=== PATIENT | female | born 1960 ===

== ENCOUNTER 2017-03-24 23:49 | Inpatient (IN) | payer MEDICAID, OTHER ==
--- NOTE | 2017-03-25 00:23 | ED PDOC ---
HPI: General Adult Time Seen by Provider: 03/25/17 00:02 Chief Complaint (Nursing): Weakness/Neurological Deficit Chief Complaint (Provider): Weakness History Per: Patient History/Exam Limitations: no limitations Onset/Duration Of Symptoms: Days (3) Current Symptoms Are (Timing): Still Present Additional History Per: Patient Additional Complaint(s): The patient is a 56yo female with past medical history of DM, presents to the ED for evaluation of weakness, fever, bodyaches and increased blood sugar levels present for the past three days. Patient reports she traveled out of state this past weekend and had increased alcohol consumption and ate different foods. The patient states she takes Metformin to control her DM but did not take proper doses this past weekend; additionally reports she does not follow up with a PCP and states she gets Metformin refills when she "visits [place]". She denies any cough, chest pain, nausea, vomiting, diarrhea, urinary symptoms, back pain, abdominal pain. Patient offers no additional medical complaints. Past Medical History Reviewed: Historical Data, Nursing Documentation, Vital Signs Vital Signs: Last Vital Signs Temp 98.2 F 03/25/17 01:46 Pulse 93 H 03/25/17 01:46 Resp 18 03/25/17 01:46 BP 150/71 03/25/17 01:46 Pulse Ox 97 03/25/17 02:16 - Medical History PMH: Diabetes - Surgical History Surgical History: Appendectomy - Family History Family History: States: Unknown Family Hx - Social History Current smoker - smoking cessation education provided: Yes - Home Medications Home Medications: Ambulatory Orders Medication Instructions Recorded Pioglitazone HCl/Metformin HCl 1 tab PO BID 03/25/17 [Pioglitazone-Metformin 01-552] - Allergies Allergies/Adverse Reactions: Allergies Allergy/AdvReac Type Severity Reaction Status Date / Time No Known Allergies Allergy Verified 03/24/17 23:56 Review of Systems ROS Statement: Except As Marked, All Systems Reviewed And Found Negative Constitutional: Positive for: Fever, Weakness Cardiovascular: Negative for: Chest Pain Gastrointestinal: Negative for: Nausea, Vomiting, Abdominal Pain, Diarrhea Musculoskeletal: Negative for: Back Pain Physical Exam - Reviewed Nursing Documentation Reviewed: Yes Vital Signs Reviewed: Yes - Physical Exam Appears: Positive for: Non-toxic, No Acute Distress Head Exam: Positive for: ATRAUMATIC, NORMAL INSPECTION, NORMOCEPHALIC Skin: Positive for: Normal Color, Dry Eye Exam: Positive for: Normal appearance ENT: Positive for: Other (dry mucus membranes) Neck: Positive for: Normal Cardiovascular/Chest: Positive for: Regular Rate, Rhythm, Tachycardia Respiratory: Positive for: Normal Breath Sounds. Negative for: Respiratory Distress Gastrointestinal/Abdominal: Positive for: Normal Exam, Soft. Negative for: Tenderness Back: Positive for: Normal Inspection Extremity: Positive for: Normal ROM. Negative for: Deformity, Swelling Neurologic/Psych: Positive for: Alert, Oriented - Laboratory Results Result Diagrams: 03/25/17 00:39 03/25/17 00:39 - ECG O2 Sat by Pulse Oximetry: 97 (RA) Pulse Ox Interpretation: Normal Medical Decision Making Medical Decision Making: Time: 1221 Impression: Hyperglycemia, fever Differentials: 1. Uncontroled DM r/o DKA 2. Infectious sources considered but not limited to UTI, pneumonia; sepsis Plan: * Labs * Tylenol 975 mg PO * IV Fluids * Reassess Time: 0216 Patient to be admitted for fever, SERS criteria, hyperglycemia. Case discussed with Dr. Calderon who is aware. Scribe Attestation: Documented by Yareli Lambert, acting as a scribe for Wade Plata MD. Provider Scribe Attestation: All medical record entries made by the Scribe were at my direction and personally dictated by me. I have reviewed the chart and agree that the record accurately reflects my personal performance of the history, physical exam, medical decision making, and the department course for this patient. I have also personally directed, reviewed, and agree with the discharge instructions and disposition. Disposition - Clinical Impression Clinical Impression: Fever, Hyperglycemia due to type 2 diabetes mellitus, Alcohol abuse - Patient ED Disposition Is Patient to be Admitted: Yes Discussed With DrTwyla: Donya Calderon Doctor Will See Patient In The: ED Counseled Patient/Family Regarding: Studies Performed, Diagnosis - Disposition Disposition Time: 02:30 Condition: FAIR - Pt Status Changed To: Hospital Disposition Of: Observation - POA Present On Arrival: Poor Glycemic Control
[2017-03-25] MEDS ORDERED: Sodium Chloride 0.9% 1,000 ML IV STA (00:27)
[2017-03-25 00:41] LABS: ABG ALLEN TEST YES; ARTERIAL BLOOD GAS HCO3 25.8 mmol/L (21-28); ARTERIAL BLOOD GAS PH 7.53 (7.35-7.45); ARTERIAL BLOOD GAS PO2 175 mm/Hg (80-100); VENOUS BLOOD GAS BASE EXCESS 1.1 mmol/L (0.0-2.0); VENOUS BLOOD GAS PCO2 27 mmHg (40-60); VENOUS BLOOD PH 7.53 (7.32-7.43)
[2017-03-25 00:42] LABS: BASO % 0.2 % (0.0-2.0); EOS # 0.1 K/uL (0.0-0.7); EOS % 0.4 % (0.0-4.0); HEMATOCRIT 35.2 % (34.0-47.0); LYMPH # 0.9 K/uL (1.0-4.3); LYMPH % 5.5 % (20.0-40.0); MEAN CELL VOLUME 89.8 fl (81.0-99.0); MEAN CORPUSCULAR HEMOGLOBIN 29.9 pg (27.0-31.0); MEAN CORPUSCULAR HGB CONC 33.3 g/dL (33.0-37.0); MEAN PLATELET VOLUME 8.3 fl (7.2-11.7); MONO # 0.4 K/uL (0.0-0.8); MONO % 2.8 % (0.0-10.0); NEUT # 14.2 K/uL (1.8-7.0); NEUT % 91.1 % (50.0-75.0); PLATELET COUNT 230 K/uL (130-400); RED CELL DISTRIBUTION WIDTH 12.5 % (11.5-14.5); WHITE BLOOD COUNT 15.6 K/uL (4.8-10.8)
[2017-03-25 00:51] LABS: ALB/GLOB RATIO 1.2 (1.0-2.1); ALKALINE PHOSPHATASE 160 U/L (38-126); ALT/SGPT 38 U/L (9-52); AST/SGOT 33 U/L (14-36); BILIRUBIN,TOTAL 0.6 mg/dl (0.2-1.3); BLOOD UREA NITROGEN 26 mg/dl (7-17); CALCIUM 9.4 mg/dL (8.4-10.2); CARBON DIOXIDE 22 mmol/L (22-30); CHLORIDE 96 mmol/L (98-107); GFR AFRICAN-AMERICAN > 60; MAGNESIUM 1.7 MG/DL (1.6-2.3); PHOSPHOROUS 2.7 mg/dl (2.5-4.5); POTASSIUM 4.7 MMOL/L (3.6-5.0); SODIUM 130 mmol/l (132-148); TOTAL PROTEIN 7.5 G/DL (6.3-8.2)
[2017-03-25 00:59] LABS: GLUCOSE,RANDOM 516 mg/dL (65-105)
[2017-03-25] MEDS ORDERED: Insulin Regular 100 units/ml IV STA ×2 (01:18→02:52)
[2017-03-25 01:20] LABS: RBC URINE 4 /hpf (0-3); URINE BACTERIA RARE (<OCC); URINE BILIRUBIN NEGATIVE (NEGATIVE); URINE BLOOD NEGATIVE (NEGATIVE); URINE COLOR STRAW (YELLOW); URINE GLUCOSE (UA) >=500 mg/dL (Normal); URINE KETONE TRACE mg/dL (NEGATIVE); URINE LEUKOCYTE ESTERASE NEG Leu/uL (Negative); URINE PROTEIN 30 mg/dL (NEGATIVE); URINE UROBILINOGEN 0.2-1.0 mg/dL (0.2-1.0); WBC URINE 7 /hpf (0-5)
[2017-03-25] MEDS ORDERED: Insulin Regular 100 units/ml ONE ×2 (01:30→02:54)
[2017-03-25] MEDS ORDERED: cefTRIAXone (Rocephin) 1 gm Inj ONE (02:12)
[2017-03-25 02:46] LABS: EOSINOPHIL 2 % (0-7); NEUTROPHIL 91 % (42-75); TOTAL CELLS COUNTED 100
[2017-03-25 02:47] LABS: LARGE PLATELETS PRESENT
[2017-03-25 02:48] LABS: STOMATOCYTES SLIGHT
--- NOTE | 2017-03-25 02:48 | CP.PCM.HP ---
History of Present Illness - History of Present Illness History of Present Illness: CC: malaise, weakness, bodyaches HPI 56 year old female PMH DM, presented to the ER for a one day history of subjective fever, malaise, and bodyaches. These symptoms were moderate severity , were constant, and were not ameliorated by anything and were not associated with any other symptoms. Over the weekend, patient heavily drank, and states she drinks beer. She also admitted to "eating everything under the sun" and not taking any of her medications. In the ER pt was febrile on arrival 102.8, tachycardia 111, BP 150/71. Glucose 500+. Na 130. Cl 96. Electrolyte derangement likely 2/2 chronic beer consumption. Currently vitals have improved HR 80, afebrile. Patient denies any cough, congestion, abd pain, diarrhea, nausea, vomiting, or urinary symptoms. ROS: per HPI, 12 systems reviewed and negative PMD: in [place] PMH: DM PSH: appendectomy FH: denies SH: tobacco "for many years" will not specify - 1 2 to 10 cigarettes daily. ETOH beer will not specify how much or how often. Meds: as below Allergies: NKDA Vitals: reviewed and currently stable Temp Pulse Resp BP Pulse Ox 98.2 F 93 H 18 150/71 97 03/25/17 01:46 03/25/17 01:46 03/25/17 01:46 03/25/17 01:46 03/25/17 02:43 Exam: GEN: WDWN, alert, cooperative HEENT: NCAT, PERRL, EOMI NECK: supple, no JVD, no lymphadenopathy CARDIAC: +S1S2 RRR LUNG: CTAB No WRR ABD: SOFT NT ND BSX4 NO MASSES NO HSM EXT: +pedal pulses, equal strength NEURO: AAOx3 SKIN warm, dry PSYCH normal mood, normal affect Labs: 03/25/17 00:39 03/25/17 00:39 Assessment and Plan: 56 year old female PMH DM, presented to the ER for a one day history of subjective fever, malaise, and bodyaches. These symptoms were moderate severity , were constant, and were not ameliorated by anything and were not associated with any other symptoms. Over the weekend, patient heavily drank, and states she drinks beer. She also admitted to "eating everything under the sun" and not taking any of her medications. In the ER pt was febrile on arrival 102.8, tachycardia 111, BP 150/71. Glucose 500+. Na 130. Cl 96. Electrolyte derangement likely 2/2 chronic beer consumption. Currently vitals have improved HR 80, afebrile. Patient denies any cough, congestion, abd pain, diarrhea, nausea, vomiting, or urinary symptoms. Hyperglycemia restart DM meds, Metformin and Actos Accuchecks ISS low hydrated pt with 1L NS in ER Hypertension start lisinopril 10 mg po daily Leukocytosis poss stress reaction to hyperglycemia no obvious source of infection, no clinical signs of infection One dose Rocephin given ER UA neg monitor Hyponatremia 2/2 beer drinkers [place] 1L NS given in ER likely secondary to chronic beer drinking Tachycardia resolved poss 2/2 dehydration Azotemia BUN 26 1L NS in ER give additional liter of fluids @250cc/hr VTE ppx SCDs Present on Admission - Present on Admission Any Indicators Present on Admission: No Past Patient History - Past Social History Smoking Status: Light Smoker < 10 Cigarettes Daily - CARDIAC Hx Hypotension: Yes - ENDOCRINE/METABOLIC Hx Diabetes Mellitus Type 2: Yes - PSYCHIATRIC Hx Substance Use: No - SURGICAL HISTORY Hx Appendectomy: Yes - ANESTHESIA Hx Anesthesia: Yes Hx Anesthesia Reactions: No Meds Allergies/Adverse Reactions: Allergies Allergy/AdvReac Type Severity Reaction Status Date / Time No Known Allergies Allergy Verified 03/24/17 23:56 Results - Vital Signs Recent Vital Signs: Last Vital Signs Temp 98.2 F 03/25/17 01:46 Pulse 93 H 03/25/17 01:46 Resp 18 03/25/17 01:46 BP 150/71 03/25/17 01:46 Pulse Ox 97 03/25/17 02:43 - Labs Result Diagrams: 03/25/17 00:39 03/25/17 00:39 Labs: Laboratory Results - last 24 hr 03/25/17 03/25/17 03/25/17 00:15 00:37 00:39 WBC 15.6 H RBC 3.92 Hgb 11.7 L Hct 35.2 MCV 89.8 MCH 29.9 MCHC 33.3 RDW 12.5 Plt Count 230 MPV 8.3 Neut % (Auto) 91.1 H Lymph % (Auto) 5.5 L Sharp % (Auto) 2.8 Eos % (Auto) 0.4 Baso % (Auto) 0.2 Neut # 14.2 H Lymph # 0.9 L Sharp # 0.4 Eos # 0.1 Baso # 0.0 PT INR APTT pCO2 27 L pO2 175 H HCO3 25.8 ABG pH 7.53 H ABG Total CO2 23.4 ABG O2 Saturation 101.1 H ABG Base Excess 1.1 Neil Test Yes ABG Potassium 5.1 VBG pH 7.53 H VBG pCO2 27 L VBG HCO3 25.8 VBG Total CO2 23.4 VBG O2 Sat (Calc) 101.1 H VBG Base Excess 1.1 VBG Potassium 5.1 A-a O2 Difference -59.0 Sodium 124.0 L Chloride 93.0 L Glucose 533 H* Lactate 1.9 FiO2 21.0 Crit Value Called To federico Plata md Crit Value Called By [id number] Crit Value Read Back Y Blood Gas Notified Time 40 Potassium Carbon Dioxide Anion Gap BUN Creatinine Est GFR ( Amer) Est GFR (Non-Af Amer) Random Glucose Calcium Phosphorus Magnesium Total Bilirubin AST ALT Alkaline Phosphatase Total Protein Albumin Globulin Albumin/Globulin Ratio Arterial Blood Potassium 5.1 Venous Blood Potassium 5.1 Urine Color Straw Urine Clarity Clear Urine pH 6.0 Ur Specific [place] 1.023 Urine Protein 30 Urine Glucose (UA) >=500 Urine Ketones Trace Urine Blood Negative Urine Nitrate Negative Urine Bilirubin Negative Urine Urobilinogen 0.2-1.0 Ur Leukocyte Esterase Neg Urine RBC (Auto) 4 H Urine Microscopic WBC 7 H Urine Bacteria Rare 03/25/17 03/25/17 00:39 00:39 WBC RBC Hgb Hct MCV MCH MCHC RDW Plt Count MPV Neut % (Auto) Lymph % (Auto) Sharp % (Auto) Eos % (Auto) Baso % (Auto) Neut # Lymph # Sharp # Eos # Baso # PT 10.4 INR 0.9 APTT 31.0 pCO2 pO2 HCO3 ABG pH ABG Total CO2 ABG O2 Saturation ABG Base Excess Neil Test ABG Potassium VBG pH VBG pCO2 VBG HCO3 VBG Total CO2 VBG O2 Sat (Calc) VBG Base Excess VBG Potassium A-a O2 Difference Sodium 130 L Chloride 96 L Glucose Lactate FiO2 Crit Value Called To Crit Value Called By Crit Value Read Back Blood Gas Notified Time Potassium 4.7 Carbon Dioxide 22 Anion Gap 17 BUN 26 H Creatinine 0.9 Est GFR ( Amer) > 60 Est GFR (Non-Af Amer) > 60 Random Glucose 516 H* Calcium 9.4 Phosphorus 2.7 Magnesium 1.7 Total Bilirubin 0.6 AST 33 ALT 38 Alkaline Phosphatase 160 H Total Protein 7.5 Albumin 4.1 Globulin 3.4 Albumin/Globulin Ratio 1.2 Arterial Blood Potassium Venous Blood Potassium Urine Color Urine Clarity Urine pH Ur Specific [place] Urine Protein Urine Glucose (UA) Urine Ketones Urine Blood Urine Nitrate Urine Bilirubin Urine Urobilinogen Ur Leukocyte Esterase Urine RBC (Auto) Urine Microscopic WBC Urine Bacteria
[2017-03-25] MEDS ORDERED: Sodium Chloride 0.9% 1,000 ML IV SCH (03:00)
[2017-03-25] MEDS ORDERED: Insulin Regular 100 units/ml SC ONE (05:40)
[2017-03-25] MEDS ORDERED: Pneumococcal 23-Valent Vaccine IM ONE (09:00)
--- NOTE | 2017-03-25 09:34 | RAD ---
HISTORY: Sepsis Patient COMPARISON: No prior. FINDINGS: LUNGS: No active pulmonary disease. PLEURA: No significant pleural effusion identified, no pneumothorax apparent. CARDIOVASCULAR: Normal. OSSEOUS STRUCTURES: No significant abnormalities. VISUALIZED UPPER ABDOMEN: Normal. OTHER FINDINGS: None. IMPRESSION: No active disease.
[2017-03-25] MEDS: Insulin Lispro (humaLOG) 100 Units/ml Inj SC SCH ×4 (10:03→22:15)
[2017-03-25 10:44] LABS: BASO % 0.3 % (0.0-2.0); EOS % 0.3 % (0.0-4.0); HEMATOCRIT 33.4 % (34.0-47.0); LYMPH # 0.6 K/uL (1.0-4.3); LYMPH % 5.2 % (20.0-40.0); MEAN CELL VOLUME 88.9 fl (81.0-99.0); MEAN CORPUSCULAR HGB CONC 33.7 g/dL (33.0-37.0); MEAN PLATELET VOLUME 7.9 fl (7.2-11.7); MONO # 0.2 K/uL (0.0-0.8); NEUT # 11.1 K/uL (1.8-7.0); NEUT % 92.2 % (50.0-75.0); PLATELET COUNT 217 K/uL (130-400); RED CELL DISTRIBUTION WIDTH 12.6 % (11.5-14.5); WHITE BLOOD COUNT 12.1 K/uL (4.8-10.8)
[2017-03-25 10:56] LABS: BLOOD UREA NITROGEN 17 mg/dl (7-17); CALCIUM 8.6 mg/dL (8.4-10.2); CARBON DIOXIDE 23 mmol/L (22-30); CHLORIDE 101 mmol/L (98-107); GFR AFRICAN-AMERICAN > 60; GLUCOSE,RANDOM 309 mg/dL (65-105); POTASSIUM 4.3 MMOL/L (3.6-5.0); SODIUM 132 mmol/l (132-148)
[2017-03-25 11:23] LABS: NEUTROPHIL 97 % (42-75); TOTAL CELLS COUNTED 100
--- NOTE | 2017-03-25 12:51 | CARD ---
APPROVED REPORT EKG Measurement Heart [id number] <Conclusion> Normal sinus rhythm Normal ECG
[2017-03-25 18:40] VITALS: BMI 28.3
[2017-03-25] MEDS ORDERED: Clindamycin 300 MG in Sodium Chloride 0.9% 100 ML IVPB SCH (19:15)
[2017-03-25] MEDS ORDERED: Cefepime 1 GM in Sodium Chloride 0.9% 100 ML IVPB SCH (20:15)
[2017-03-26] MEDS: Clindamycin 300 MG in Sodium Chloride 0.9% 100 ML IVPB SCH ×3 (05:17→22:00)
[2017-03-26] MEDS: Cefepime 1 GM in Sodium Chloride 0.9% 100 ML IVPB SCH ×3 (05:19→21:24)
[2017-03-26 07:13] LABS: BASO % 0.3 % (0.0-2.0); EOS % 0.2 % (0.0-4.0); HEMATOCRIT 30.5 % (34.0-47.0); LYMPH # 0.6 K/uL (1.0-4.3); LYMPH % 6.8 % (20.0-40.0); MEAN CELL VOLUME 89.8 fl (81.0-99.0); MEAN CORPUSCULAR HEMOGLOBIN 30.1 pg (27.0-31.0); MEAN CORPUSCULAR HGB CONC 33.5 g/dL (33.0-37.0); MEAN PLATELET VOLUME 8.1 fl (7.2-11.7); MONO # 0.3 K/uL (0.0-0.8); MONO % 2.9 % (0.0-10.0); NEUT % 89.8 % (50.0-75.0); RED CELL DISTRIBUTION WIDTH 12.6 % (11.5-14.5); WHITE BLOOD COUNT 8.9 K/uL (4.8-10.8)
[2017-03-26 07:26] LABS: BLOOD UREA NITROGEN 13 mg/dl (7-17); CALCIUM 8.1 mg/dL (8.4-10.2); CARBON DIOXIDE 22 mmol/L (22-30); CHLORIDE 104 mmol/L (98-107); GFR AFRICAN-AMERICAN > 60; GLUCOSE,RANDOM 280 mg/dL (65-105); POTASSIUM 3.8 MMOL/L (3.6-5.0); SODIUM 133 mmol/l (132-148)
[2017-03-26] MEDS: Insulin Lispro (humaLOG) 100 Units/ml Inj SC SCH ×4 (08:28→22:25)
--- NOTE | 2017-03-26 10:45 | CP.PCM.CON ---
History of Present Illness - History of Present Illness History of Present Illness: Infectious Disease consultation Note- asked to see this patient at the request of the hospitalist for bacteremia- HPI- medical history obtained mostly from the medical chart and pt's daughter who is at bedside since pt. not good historian and lethargic. Pt. is a 56 year old female with uncontrolled DM II who was admitted with c/o bodyaches, malaise, weakness . as per pt's daughter pt. over the last weekend was with relatives and ate everything she wanted and drank ETOH and was not compliant with her diabetes med and hence on admission was found to be hyperglycemic and in addition was found to be febrile and + urine and blood cx and hence i'm asked to evaluate and help with antibiotic management. pt. currently very sleepy but arousable. denies any fever or chills, denies any cough or sob, denies any chest pain, + c/ o overall bodyache and weakness and malaise and feeling sleepy, denies any n/v, denies any diarrhea, denies any dysurea. as per pt's daughter who is at bedside pt. presents similar to this whenever she has high sugars. PMH: DM PSH: appendectomy FH: denies SH: tobacco "for many years" will not specify - 1 2 to 10 cigarettes daily. ETOH beer will not specify how much or how often. Meds: as below Allergies: NKDA Review of Systems - Review of Systems Review of Systems: ROS- denies any fever or chills, denies any cough or sob, denies any chest pain, + c/ o overall bodyache and weakness and malaise and feeling sleepy, denies any n/v, denies any diarrhea, denies any dysurea denies any sick contacts Past Patient History - Past Medical History & Family History Past Medical History?: Yes - Past Social History Smoking Status: Light Smoker < 10 Cigarettes Daily Alcohol: Social Home Situation {Lives}: With Family - CARDIAC Hx Hypotension: Yes - ENDOCRINE/METABOLIC Hx Diabetes Mellitus Type 2: Yes - HEMATOLOGICAL/ONCOLOGICAL Hx Blood Disorders: No - MUSCULOSKELETAL/RHEUMATOLOGICAL Hx Falls: No - PSYCHIATRIC Hx Substance Use: No - SURGICAL HISTORY Hx Appendectomy: Yes Hx Tonsillectomy: Yes - ANESTHESIA Hx Anesthesia: Yes Hx Anesthesia Reactions: No Meds Allergies/Adverse Reactions: Allergies Allergy/AdvReac Type Severity Reaction Status Date / Time No Known Allergies Allergy Verified 03/24/17 23:56 - Medications Medications: Current Medications Acetaminophen (Tylenol 325mg Tab) 650 mg PO Q6 PRN PRN Reason: Fever >100.4 F Last Admin: 03/26/17 04:19 Dose: 650 mg Clindamycin Phosphate 300 mg/ (Sodium Chloride) 102 mls @ 102 mls/hr IVPB Q8@ 0500,1300,2100 [facility] Last Admin: 03/26/17 05:17 Dose: 102 mls/hr Cefepime HCl 1 gm/ Sodium (Chloride) 100 mls @ 100 mls/hr IVPB Q8@0600,1400, 2200 [facility] Last Admin: 03/26/17 05:19 Dose: 100 mls/hr Ibuprofen (Motrin Tab) 400 mg PO Q6 PRN PRN Reason: Fever >100.4 F Last Admin: 03/25/17 16:05 Dose: 400 mg Insulin Human Lispro (Humalog) 0 units SC ACHS [facility] PRN Reason: Protocol Last Admin: 03/26/17 08:28 Dose: 3 u Lisinopril (Zestril) 10 mg PO DAILY [facility] Last Admin: 03/26/17 08:27 Dose: Not Given Metformin HCl (Glucophage) 1,000 mg PO BIDWM [facility] Last Admin: 03/26/17 08:28 Dose: 1,000 mg Ondansetron HCl (Zofran Inj) 4 mg IVP Q6 PRN PRN Reason: Nausea/Vomiting Last Admin: 03/25/17 10:02 Dose: 4 mg Pioglitazone HCl (Actos) 30 mg PO DAILY [facility] Last Admin: 03/26/17 08:28 Dose: 30 mg Physical Exam - Constitutional Additional comments: drowsy - Head Exam Head Exam: ATRAUMATIC - Eye Exam Eye Exam: EOMI Pupil Exam: PERRL - ENT Exam ENT Exam: Normal Oropharynx - Neck Exam Neck exam: Positive for: Full Rom Additional comments: supple - Respiratory Exam Respiratory Exam: Clear to Auscultation Bilateral, NORMAL BREATHING PATTERN - Cardiovascular Exam Cardiovascular Exam: RRR, +S1, +S2 - GI/Abdominal Exam GI & Abdominal Exam: Normal Bowel Sounds, Soft Additional comments: NT, ND No CVA tenderness B/L - Neurological Exam Additional comments: drowsy but easily arousbale and can answer questions when asked AAO x 3 Results - Vital Signs Recent Vital Signs: Last Vital Signs Temp 99.7 F H 03/26/17 08:31 Pulse 75 03/26/17 08:31 Resp 20 03/26/17 08:31 BP 97/55 L 03/26/17 08:31 Pulse Ox 99 03/26/17 08:31 - Labs Result Diagrams: 03/26/17 06:30 03/26/17 06:30 Labs: Laboratory Results - last 72 hr 03/25/17 03/25/17 03/25/17 00:08 00:15 00:37 WBC RBC Hgb Hct MCV MCH MCHC RDW Plt Count MPV Neut % (Auto) Lymph % (Auto) Titus % (Auto) Eos % (Auto) Baso % (Auto) Neut # Lymph # [place]itus # Eos # Baso # Neutrophils % (Manual) Band Neutrophils % Lymphocytes % (Manual) Monocytes % (Manual) Eosinophils % (Manual) Platelet Estimate Large Platelets Hypochromasia (manual) Anisocytosis (manual) Stomatocytes PT INR APTT pCO2 27 L pO2 175 H HCO3 25.8 ABG pH 7.53 H ABG Total CO2 23.4 ABG O2 Saturation 101.1 H ABG Base Excess 1.1 Neil Test Yes ABG Potassium 5.1 VBG pH 7.53 H VBG pCO2 27 L VBG HCO3 25.8 VBG Total CO2 23.4 VBG O2 Sat (Calc) 101.1 H VBG Base Excess 1.1 VBG Potassium 5.1 A-a O2 Difference -59.0 Sodium 124.0 L Chloride 93.0 L Glucose 533 H* Lactate 1.9 FiO2 21.0 Crit Value Called To federico Plata md Crit Value Called By [id number] Crit Value Read Back Y Blood Gas Notified Time 40 Potassium Carbon Dioxide Anion Gap BUN Creatinine Est GFR ( Amer) Est GFR (Non-Af Amer) POC Glucose (mg/dL) > 500 H* Random Glucose Calcium Phosphorus Magnesium Total Bilirubin AST ALT Alkaline Phosphatase Troponin I Total Protein Albumin Globulin Albumin/Globulin Ratio Arterial Blood Potassium 5.1 Venous Blood Potassium 5.1 Urine Color Straw Urine Clarity Clear Urine pH 6.0 Ur Specific [place] 1.023 Urine Protein 30 Urine Glucose (UA) >=500 Urine Ketones Trace Urine Blood Negative Urine Nitrate Negative Urine Bilirubin Negative Urine Urobilinogen 0.2-1.0 Ur Leukocyte Esterase Neg Urine RBC (Auto) 4 H Urine Microscopic WBC 7 H Urine Bacteria Rare HIV-1 Ab Rapid Screen Influenza Typ A,B (EIA) 03/25/17 03/25/17 03/25/17 00:39 00:39 00:39 WBC 15.6 H RBC 3.92 Hgb 11.7 L Hct 35.2 MCV 89.8 MCH 29.9 MCHC 33.3 RDW 12.5 Plt Count 230 MPV 8.3 Neut % (Auto) 91.1 H Lymph % (Auto) 5.5 L [place] % (Auto) 2.8 Eos % (Auto) 0.4 Baso % (Auto) 0.2 Neut # 14.2 H Lymph # 0.9 L [place]itus # 0.4 Eos # 0.1 Baso # 0.0 Neutrophils % (Manual) 91 H Band Neutrophils % 4 H Lymphocytes % (Manual) 3 L Monocytes % (Manual) 0 Eosinophils % (Manual) 2 Platelet Estimate Normal Large Platelets Present Hypochromasia (manual) Slight Anisocytosis (manual) Slight Stomatocytes Slight PT 10.4 INR 0.9 APTT 31.0 pCO2 pO2 HCO3 ABG pH ABG Total CO2 ABG O2 Saturation ABG Base Excess Neil Test ABG Potassium VBG pH VBG pCO2 VBG HCO3 VBG Total CO2 VBG O2 Sat (Calc) VBG Base Excess VBG Potassium A-a O2 Difference Sodium 130 L Chloride 96 L Glucose Lactate FiO2 Crit Value Called To Crit Value Called By Crit Value Read Back Blood Gas Notified Time Potassium 4.7 Carbon Dioxide 22 Anion Gap 17 BUN 26 H Creatinine 0.9 Est GFR ( Amer) > 60 Est GFR (Non-Af Amer) > 60 POC Glucose (mg/dL) Random Glucose 516 H* Calcium 9.4 Phosphorus 2.7 Magnesium 1.7 Total Bilirubin 0.6 AST 33 ALT 38 Alkaline Phosphatase 160 H Troponin I Total Protein 7.5 Albumin 4.1 Globulin 3.4 Albumin/Globulin Ratio 1.2 Arterial Blood Potassium Venous Blood Potassium Urine Color Urine Clarity Urine pH Ur Specific [place] Urine Protein Urine Glucose (UA) Urine Ketones Urine Blood Urine Nitrate Urine Bilirubin Urine Urobilinogen Ur Leukocyte Esterase Urine RBC (Auto) Urine Microscopic WBC Urine Bacteria HIV-1 Ab Rapid Screen Influenza Typ A,B (EIA) 07/03/25/17 03/25/17 02:49 02:50 04:45 WBC RBC Hgb Hct MCV MCH MCHC RDW Plt Count MPV Neut % (Auto) Lymph % (Auto) [place] % (Auto) Eos % (Auto) Baso % (Auto) Neut # Lymph # [place]itus # Eos # Baso # Neutrophils % (Manual) Band Neutrophils % Lymphocytes % (Manual) Monocytes % (Manual) Eosinophils % (Manual) Platelet Estimate Large Platelets Hypochromasia (manual) Anisocytosis (manual) Stomatocytes PT INR APTT pCO2 pO2 HCO3 ABG pH ABG Total CO2 ABG O2 Saturation ABG Base Excess Neil Test ABG Potassium VBG pH VBG pCO2 VBG HCO3 VBG Total CO2 VBG O2 Sat (Calc) VBG Base Excess VBG Potassium A-a O2 Difference Sodium Chloride Glucose Lactate FiO2 Crit Value Called To Crit Value Called By Crit Value Read Back Blood Gas Notified Time Potassium Carbon Dioxide Anion Gap BUN Creatinine Est GFR ( Amer) Est GFR (Non-Af Amer) POC Glucose (mg/dL) 468 H* 440 H* Random Glucose Calcium Phosphorus Magnesium Total Bilirubin AST ALT Alkaline Phosphatase Troponin I Total Protein Albumin Globulin Albumin/Globulin Ratio Arterial Blood Potassium Venous Blood Potassium Urine Color Urine Clarity Urine pH Ur Specific [place] Urine Protein Urine Glucose (UA) Urine Ketones Urine Blood Urine Nitrate Urine Bilirubin Urine Urobilinogen Ur Leukocyte Esterase Urine RBC (Auto) Urine Microscopic WBC Urine Bacteria HIV-1 Ab Rapid Screen Influenza Typ A,B (EIA) Negative for flu a/b 03/25/17 03/25/17 03/25/17 05:42 06:56 10:15 WBC 12.1 H RBC 3.76 L Hgb 11.3 L Hct 33.4 L MCV 88.9 MCH 30.0 MCHC 33.7 RDW 12.6 Plt Count 217 MPV 7.9 Neut % (Auto) 92.2 H Lymph % (Auto) 5.2 L [place] % (Auto) 2.0 Eos % (Auto) 0.3 Baso % (Auto) 0.3 Neut # 11.1 H Lymph # 0.6 L [place] # 0.2 Eos # 0.0 Baso # 0.0 Neutrophils % (Manual) 97 H Band Neutrophils % Lymphocytes % (Manual) 2 L Monocytes % (Manual) 1 Eosinophils % (Manual) Platelet Estimate Normal Large Platelets Hypochromasia (manual) Slight Anisocytosis (manual) Stomatocytes PT INR APTT pCO2 pO2 HCO3 ABG pH ABG Total CO2 ABG O2 Saturation ABG Base Excess Neil Test ABG Potassium VBG pH VBG pCO2 VBG HCO3 VBG Total CO2 VBG O2 Sat (Calc) VBG Base Excess VBG Potassium A-a O2 Difference Sodium Chloride Glucose Lactate FiO2 Crit Value Called To Crit Value Called By Crit Value Read Back Blood Gas Notified Time Potassium Carbon Dioxide Anion Gap BUN Creatinine Est GFR ( Amer) Est GFR (Non-Af Amer) POC Glucose (mg/dL) 431 H* 330 H Random Glucose Calcium Phosphorus Magnesium Total Bilirubin AST ALT Alkaline Phosphatase Troponin I Total Protein Albumin Globulin Albumin/Globulin Ratio Arterial Blood Potassium Venous Blood Potassium Urine Color Urine Clarity Urine pH Ur Specific [place] Urine Protein Urine Glucose (UA) Urine Ketones Urine Blood Urine Nitrate Urine Bilirubin Urine Urobilinogen Ur Leukocyte Esterase Urine RBC (Auto) Urine Microscopic WBC Urine Bacteria HIV-1 Ab Rapid Screen Influenza Typ A,B (EIA) 03/25/17 03/25/17 03/25/17 10:15 17:25 19:37 WBC RBC Hgb Hct MCV MCH MCHC RDW Plt Count MPV Neut % (Auto) Lymph % (Auto) [place] % (Auto) Eos % (Auto) Baso % (Auto) Neut # Lymph # [place] # Eos # Baso # Neutrophils % (Manual) Band Neutrophils % Lymphocytes % (Manual) Monocytes % (Manual) Eosinophils % (Manual) Platelet Estimate Large Platelets Hypochromasia (manual) Anisocytosis (manual) Stomatocytes PT INR APTT pCO2 pO2 HCO3 ABG pH ABG Total CO2 ABG O2 Saturation ABG Base Excess Neil Test ABG Potassium VBG pH VBG pCO2 VBG HCO3 VBG Total CO2 VBG O2 Sat (Calc) VBG Base Excess VBG Potassium A-a O2 Difference Sodium 132 Chloride 101 Glucose Lactate FiO2 Crit Value Called To Crit Value Called By Crit Value Read Back Blood Gas Notified Time Potassium 4.3 Carbon Dioxide 23 Anion Gap 13 BUN 17 Creatinine 0.7 Est GFR ( Amer) > 60 Est GFR (Non-Af Amer) > 60 POC Glucose (mg/dL) 345 H Random Glucose 309 H Calcium 8.6 Phosphorus Magnesium Total Bilirubin AST ALT Alkaline Phosphatase Troponin I Total Protein Albumin Globulin Albumin/Globulin Ratio Arterial Blood Potassium Venous Blood Potassium Urine Color Urine Clarity Urine pH Ur Specific [place] Urine Protein Urine Glucose (UA) Urine Ketones Urine Blood Urine Nitrate Urine Bilirubin Urine Urobilinogen Ur Leukocyte Esterase Urine RBC (Auto) Urine Microscopic WBC Urine Bacteria HIV-1 Ab Rapid Screen Non reactive Influenza Typ A,B (EIA) 03/25/17 03/26/17 03/26/17 21:27 06:16 06:30 WBC 8.9 RBC 3.39 L Hgb 10.2 L Hct 30.5 L MCV 89.8 MCH 30.1 MCHC 33.5 RDW 12.6 Plt Count 194 MPV 8.1 Neut % (Auto) 89.8 H Lymph % (Auto) 6.8 L [place] % (Auto) 2.9 Eos % (Auto) 0.2 Baso % (Auto) 0.3 Neut # 8.0 H Lymph # 0.6 L [place] # 0.3 Eos # 0.0 Baso # 0.0 Neutrophils % (Manual) Band Neutrophils % Lymphocytes % (Manual) Monocytes % (Manual) Eosinophils % (Manual) Platelet Estimate Large Platelets Hypochromasia (manual) Anisocytosis (manual) Stomatocytes PT INR APTT pCO2 pO2 HCO3 ABG pH ABG Total CO2 ABG O2 Saturation ABG Base Excess Neil Test ABG Potassium VBG pH VBG pCO2 VBG HCO3 VBG Total CO2 VBG O2 Sat (Calc) VBG Base Excess VBG Potassium A-a O2 Difference Sodium Chloride Glucose Lactate FiO2 Crit Value Called To Crit Value Called By Crit Value Read Back Blood Gas Notified Time Potassium Carbon Dioxide Anion Gap BUN Creatinine Est GFR ( Amer) Est GFR (Non-Af Amer) POC Glucose (mg/dL) 292 H 278 H Random Glucose Calcium Phosphorus Magnesium Total Bilirubin AST ALT Alkaline Phosphatase Troponin I Total Protein Albumin Globulin Albumin/Globulin Ratio Arterial Blood Potassium Venous Blood Potassium Urine Color Urine Clarity Urine pH Ur Specific [place] Urine Protein Urine Glucose (UA) Urine Ketones Urine Blood Urine Nitrate Urine Bilirubin Urine Urobilinogen Ur Leukocyte Esterase Urine RBC (Auto) Urine Microscopic WBC Urine Bacteria HIV-1 Ab Rapid Screen Influenza Typ A,B (EIA) 03/26/17 03/26/17 03/26/17 06:30 10:45 15:28 WBC RBC Hgb Hct MCV MCH MCHC RDW Plt Count MPV Neut % (Auto) Lymph % (Auto) [place] % (Auto) Eos % (Auto) Baso % (Auto) Neut # Lymph # [place] # Eos # Baso # Neutrophils % (Manual) Band Neutrophils % Lymphocytes % (Manual) Monocytes % (Manual) Eosinophils % (Manual) Platelet Estimate Large Platelets Hypochromasia (manual) Anisocytosis (manual) Stomatocytes PT INR APTT pCO2 pO2 HCO3 ABG pH ABG Total CO2 ABG O2 Saturation ABG Base Excess Neil Test ABG Potassium VBG pH VBG pCO2 VBG HCO3 VBG Total CO2 VBG O2 Sat (Calc) VBG Base Excess VBG Potassium A-a O2 Difference Sodium 133 Chloride 104 Glucose Lactate FiO2 Crit Value Called To Crit Value Called By Crit Value Read Back Blood Gas Notified Time Potassium 3.8 Carbon Dioxide 22 Anion Gap 12 BUN 13 Creatinine 0.7 Est GFR ( Amer) > 60 Est GFR (Non-Af Amer) > 60 POC Glucose (mg/dL) 375 H Random Glucose 280 H Calcium 8.1 L Phosphorus Magnesium Total Bilirubin AST ALT Alkaline Phosphatase Troponin I < 0.0120 Total Protein Albumin Globulin Albumin/Globulin Ratio Arterial Blood Potassium Venous Blood Potassium Urine Color Urine Clarity Urine pH Ur Specific [place] Urine Protein Urine Glucose (UA) Urine Ketones Urine Blood Urine Nitrate Urine Bilirubin Urine Urobilinogen Ur Leukocyte Esterase Urine RBC (Auto) Urine Microscopic WBC Urine Bacteria HIV-1 Ab Rapid Screen Influenza Typ A,B (EIA) 03/26/17 15:52 WBC RBC Hgb Hct MCV MCH MCHC RDW Plt Count MPV Neut % (Auto) Lymph % (Auto) [place] % (Auto) Eos % (Auto) Baso % (Auto) Neut # Lymph # [place] # Eos # Baso # Neutrophils % (Manual) Band Neutrophils % Lymphocytes % (Manual) Monocytes % (Manual) Eosinophils % (Manual) Platelet Estimate Large Platelets Hypochromasia (manual) Anisocytosis (manual) Stomatocytes PT INR APTT pCO2 pO2 HCO3 ABG pH ABG Total CO2 ABG O2 Saturation ABG Base Excess Neil Test ABG Potassium VBG pH VBG pCO2 VBG HCO3 VBG Total CO2 VBG O2 Sat (Calc) VBG Base Excess VBG Potassium A-a O2 Difference Sodium Chloride Glucose Lactate FiO2 Crit Value Called To Crit Value Called By Crit Value Read Back Blood Gas Notified Time Potassium Carbon Dioxide Anion Gap BUN Creatinine Est GFR ( Amer) Est GFR (Non-Af Amer) POC Glucose (mg/dL) 198 H Random Glucose Calcium Phosphorus Magnesium Total Bilirubin AST ALT Alkaline Phosphatase Troponin I Total Protein Albumin Globulin Albumin/Globulin Ratio Arterial Blood Potassium Venous Blood Potassium Urine Color Urine Clarity Urine pH Ur Specific [place] Urine Protein Urine Glucose (UA) Urine Ketones Urine Blood Urine Nitrate Urine Bilirubin Urine Urobilinogen Ur Leukocyte Esterase Urine RBC (Auto) Urine Microscopic WBC Urine Bacteria HIV-1 Ab Rapid Screen Influenza Typ A,B (EIA) Microbiology 03/25/17 00:30 Blood Blood Culture - Preliminary Gram Negative German 03/25/17 00:30 Blood Gram Stain - Final 03/25/17 00:15 Urine,Clean Catch Urine Culture - Preliminary Gram Negative German 03/25/17 00:50 Blood Blood Culture - Preliminary NO GROWTH AFTER 24 HOURS Accession No. : [id number] Patient Name / ID : OSMIN GONZALEZ / [id number] Exam Date : 03/25/2017 00:39:35 ( Approved ) Study Comment : Sex / Age : F / 56Y Creator : Desmond Argueta MD Dictator : Desmond Argueta MD Houseperson : Information Systems Manager : Desmond Argueta MD Approver2 : Report Date : 03/25/2017 09:33:01 My Comment : HISTORY: Sepsis Patient COMPARISON: No prior. FINDINGS: LUNGS: No active pulmonary disease. PLEURA: No significant pleural effusion identified, no pneumothorax apparent. CARDIOVASCULAR: Normal. OSSEOUS STRUCTURES: No significant abnormalities. VISUALIZED UPPER ABDOMEN: Normal. OTHER FINDINGS: None. IMPRESSION: No active disease. Assessment & Plan (1) Hyperglycemia due to type 2 diabetes mellitus Status: Acute (2) Bacteremia due to Escherichia coli Status: Acute (3) E. coli UTI (urinary tract infection) Status: Acute - Assessment and Plan (Free Text) Assessment: A/P- 56 year old female with uncontrolled diabetes admitted with bodyaches, malaise and fever and found to have e.coli UTI and bacteremia. febrile today and last night. normal wbc count urine cx- e.coli pansensitive blood cx-1 out of 2 E.Coli pansensitive CXR- negative as per report echo- no clear vegetations as per medical staff specialist's report. plan- check 2 more blood cx. continue with IV cefepfor e.cli bacteremia. day #1 today. needs better glucose control and monitoring. Latanya robertson d/w patient and her daughter at bedside and they verbalize understanding of all above. Thank you for allowing me to take part in the care of this patient.
--- NOTE | 2017-03-26 11:29 | CP.PCM.DIS ---
Provider - Provider Date of Admission: 03/26/17 08:04 Attending physician: Donya Calderon DO [facility] Course - Lab Results Lab Results: Most Recent Lab Values WBC 8.9 K/uL (4.8-10.8) 03/26/17 06:30 RBC 3.39 Mil/uL (3.80-5.20) L 03/26/17 06:30 Hgb 10.2 g/dL (12.0-16.0) L 03/26/17 06:30 Hct 30.5 % (34.0-47.0) L 03/26/17 06:30 MCV 89.8 fl (81.0-99.0) 03/26/17 06:30 MCH 30.1 pg (27.0-31.0) 03/26/17 06:30 MCHC 33.5 g/dL (33.0-37.0) 03/26/17 06:30 RDW 12.6 % (11.5-14.5) 03/26/17 06:30 Plt Count 194 K/uL (130-400) 03/26/17 06:30 MPV 8.1 fl (7.2-11.7) 03/26/17 06:30 Neut % (Auto) 89.8 % (50.0-75.0) H 03/26/17 06:30 Lymph % (Auto) 6.8 % (20.0-40.0) L 03/26/17 06:30 [place] % (Auto) 2.9 % (0.0-10.0) 03/26/17 06:30 Eos % (Auto) 0.2 % (0.0-4.0) 03/26/17 06:30 Baso % (Auto) 0.3 % (0.0-2.0) 03/26/17 06:30 Neut # 8.0 K/uL (1.8-7.0) H 03/26/17 06:30 Lymph # 0.6 K/uL (1.0-4.3) L 03/26/17 06:30 [place] # 0.3 K/uL (0.0-0.8) 03/26/17 06:30 Eos # 0.0 K/uL (0.0-0.7) 03/26/17 06:30 Baso # 0.0 K/uL (0.0-0.2) 03/26/17 06:30 Neutrophils % (Manual) 97 % (42-75) H 03/25/17 10:15 Band Neutrophils % 4 % (0-2) H 03/25/17 00:39 Lymphocytes % (Manual) 2 % (20-50) L 03/25/17 10:15 Monocytes % (Manual) 1 % (0-10) 03/25/17 10:15 Eosinophils % (Manual) 2 % (0-7) 03/25/17 00:39 Platelet Estimate Normal (NORMAL) 03/25/17 10:15 Large Platelets Present 03/25/17 00:39 Hypochromasia (manual) Slight 03/25/17 10:15 Anisocytosis (manual) Slight 03/25/17 00:39 Stomatocytes Slight 03/25/17 00:39 PT 10.4 Seconds (9.8-13.1) 03/25/17 00:39 INR 0.9 (0.9-1.2) 03/25/17 00:39 APTT 31.0 Seconds (25.6-37.1) 03/25/17 00:39 pCO2 27 mm/Hg (35-45) L 03/25/17 00:37 pO2 175 mm/Hg (30-55) H 03/25/17 00:37 HCO3 25.8 mmol/L (21-28) 03/25/17 00:37 ABG pH 7.53 (7.35-7.45) H 03/25/17 00:37 ABG Total CO2 23.4 mmol/L (22-28) 03/25/17 00:37 ABG O2 Saturation 101.1 % (95-98) H 03/25/17 00:37 ABG Base Excess 1.1 mmol/L (-2.0-3.0) 03/25/17 00:37 Neil Test Yes 03/25/17 00:37 ABG Potassium 5.1 mmol/L (3.6-5.2) 03/25/17 00:37 VBG pH 7.53 (7.32-7.43) H 03/25/17 00:37 VBG pCO2 27 mmHg (40-60) L 03/25/17 00:37 VBG HCO3 25.8 mmol/L 03/25/17 00:37 VBG Total CO2 23.4 mmol/L (22-28) 03/25/17 00:37 VBG O2 Sat (Calc) 101.1 % (40-65) H 03/25/17 00:37 VBG Base Excess 1.1 mmol/L (0.0-2.0) 03/25/17 00:37 VBG Potassium 5.1 mmol/L (3.6-5.2) 03/25/17 00:37 A-a O2 Difference -59.0 mm/Hg 03/25/17 00:37 Sodium 124.0 mmol/L (132-148) L 03/25/17 00:37 Chloride 93.0 mmol/L (98-107) L 03/25/17 00:37 Glucose 533 mg/dL (65-105) H* 03/25/17 00:37 Lactate 1.9 mmol/L (0.7-2.1) 03/25/17 00:37 FiO2 21.0 % 03/25/17 00:37 Crit Value Called To federico Plata md 03/25/17 00:37 Crit Value Called By [id number] 03/25/17 00:37 Crit Value Read Back Y 03/25/17 00:37 Blood Gas Notified Time 40 03/25/17 00:37 Sodium 133 mmol/l (132-148) 03/26/17 06:30 Potassium 3.8 MMOL/L (3.6-5.0) 03/26/17 06:30 Chloride 104 mmol/L (98-107) 03/26/17 06:30 Carbon Dioxide 22 mmol/L (22-30) 03/26/17 06:30 Anion Gap 12 (10-20) 03/26/17 06:30 BUN 13 mg/dl (7-17) 03/26/17 06:30 Creatinine 0.7 mg/dL (0.7-1.2) 03/26/17 06:30 Est GFR ( Amer) > 60 03/26/17 06:30 Est GFR (Non-Af Amer) > 60 03/26/17 06:30 POC Glucose (mg/dL) 375 mg/dL (65-110) H 03/26/17 10:45 Random Glucose 280 mg/dL (65-105) H 03/26/17 06:30 Calcium 8.1 mg/dL (8.4-10.2) L 03/26/17 06:30 Phosphorus 2.7 mg/dl (2.5-4.5) 03/25/17 00:39 Magnesium 1.7 MG/DL (1.6-2.3) 03/25/17 00:39 Total Bilirubin 0.6 mg/dl (0.2-1.3) 03/25/17 00:39 AST 33 U/L (14-36) 03/25/17 00:39 ALT 38 U/L (9-52) 03/25/17 00:39 Alkaline Phosphatase 160 U/L (38-126) H 03/25/17 00:39 Total Protein 7.5 G/DL (6.3-8.2) 03/25/17 00:39 Albumin 4.1 g/dL (3.5-5.0) 03/25/17 00:39 Globulin 3.4 gm/dL (2.2-3.9) 03/25/17 00:39 Albumin/Globulin Ratio 1.2 (1.0-2.1) 03/25/17 00:39 Arterial Blood Potassium 5.1 mmol/L (3.6-5.2) 03/25/17 00:37 Venous Blood Potassium 5.1 mmol/L (3.6-5.2) 03/25/17 00:37 Urine Color Straw (YELLOW) 03/25/17 00:15 Urine Clarity Clear (Clear) 03/25/17 00:15 Urine pH 6.0 (5.0-8.0) 03/25/17 00:15 Ur Specific Babb 1.023 (1.003-1.030) 03/25/17 00:15 Urine Protein 30 mg/dL (NEGATIVE) 03/25/17 00:15 Urine Glucose (UA) >=500 mg/dL (Normal) 03/25/17 00:15 Urine Ketones Trace mg/dL (NEGATIVE) 03/25/17 00:15 Urine Blood Negative (NEGATIVE) 03/25/17 00:15 Urine Nitrate Negative (NEGATIVE) 03/25/17 00:15 Urine Bilirubin Negative (NEGATIVE) 03/25/17 00:15 Urine Urobilinogen 0.2-1.0 mg/dL (0.2-1.0) 03/25/17 00:15 Ur Leukocyte Esterase Neg [place]/uL (Negative) 03/25/17 00:15 Urine RBC (Auto) 4 /hpf (0-3) H 03/25/17 00:15 Urine Microscopic WBC 7 /hpf (0-5) H 03/25/17 00:15 Urine Bacteria Rare (<OCC) 03/25/17 00:15 HIV-1 Ab Rapid Screen Non reactive (NON REAC) 03/25/17 19:37 Influenza Typ A,B (EIA) Negative for flu a/b (NEGATIVE) 03/25/17 02:49 Discharge Exam - Head Exam Head Exam: ATRAUMATIC, NORMAL INSPECTION, NORMOCEPHALIC Discharge Plan - Follow Up Plan Condition: FAIR Disposition: HOME/ ROUTINE Instructions: Diabetes Mellitus Type 2 in Adults (GEN), Diabetic Hyperglycemia (GEN)
--- NOTE | 2017-03-26 11:29 | CP.PCM.PN ---
Subjective - Date & Time of Evaluation Date of Evaluation: 03/26/17 Time of Evaluation: 11:00 - Subjective Subjective: Pt's daughter and granddaughter at bedside Pt is febrile though WBC ct now nornal had breakfast this am and tolerated PO diet denies cough no CP no abd pain + body aches no abn vaginal discharge no joint pain nor swelling no rash Objective - Vital Signs/Intake and Output Vital Signs (last 24 hours): Temp Pulse Resp BP Pulse Ox 99.7 F H 75 20 97/55 L 99 03/26/17 08:31 03/26/17 08:31 03/26/17 08:31 03/26/17 08:31 03/26/17 08:31 - Medications Medications: Current Medications Acetaminophen (Tylenol 325mg Tab) 650 mg PO Q6 PRN PRN Reason: Fever >100.4 F Last Admin: 03/26/17 04:19 Dose: 650 mg Glipizide (Glucotrol) 5 mg PO ACB [facility] Glipizide (Glucotrol) 5 mg PO ONCE ONE Stop: 03/26/17 11:29 Clindamycin Phosphate 300 mg/ (Sodium Chloride) 102 mls @ 102 mls/hr IVPB Q8@ 0500,1300,2100 [facility] Last Admin: 03/26/17 05:17 Dose: 102 mls/hr Cefepime HCl 1 gm/ Sodium (Chloride) 100 mls @ 100 mls/hr IVPB Q8@0600,1400, 2200 [facility] Last Admin: 03/26/17 05:19 Dose: 100 mls/hr Ibuprofen (Motrin Tab) 400 mg PO Q6 PRN PRN Reason: Fever >100.4 F Last Admin: 03/25/17 16:05 Dose: 400 mg Insulin Human Lispro (Humalog) 0 units SC ACHS [facility] PRN Reason: Protocol Last Admin: 03/26/17 08:28 Dose: 3 u Lisinopril (Zestril) 10 mg PO DAILY [facility] Last Admin: 03/26/17 08:27 Dose: Not Given Metformin HCl (Glucophage) 1,000 mg PO BIDWM [facility] Last Admin: 03/26/17 08:28 Dose: 1,000 mg Ondansetron HCl (Zofran Inj) 4 mg IVP Q6 PRN PRN Reason: Nausea/Vomiting Last Admin: 03/25/17 10:02 Dose: 4 mg Pioglitazone HCl (Actos) 30 mg PO DAILY [facility] Last Admin: 03/26/17 08:28 Dose: 30 mg - Labs Labs: PT 10.4 Seconds (9.8-13.1) 03/25/17 00:39 INR 0.9 (0.9-1.2) 03/25/17 00:39 APTT 31.0 Seconds (25.6-37.1) 03/25/17 00:39 - Constitutional Appears: Non-toxic, No Acute Distress - Head Exam Head Exam: NORMAL INSPECTION, NORMOCEPHALIC - Eye Exam Eye Exam: EOMI, Normal appearance, PERRL Pupil Exam: NORMAL ACCOMODATION - ENT Exam ENT Exam: Mucous Membranes Moist, Normal External Ear Exam - Neck Exam Neck Exam: Full ROM. absent: Meningismus - Respiratory Exam Respiratory Exam: NORMAL BREATHING PATTERN. absent: Respiratory Distress - Cardiovascular Exam Cardiovascular Exam: REGULAR RHYTHM, +S1, +S2 - GI/Abdominal Exam GI & Abdominal Exam: Soft, Normal Bowel Sounds. absent: Tenderness - Extremities Exam Extremities Exam: Full ROM, Normal Capillary Refill. absent: Calf Tenderness - Back Exam Back Exam: Full ROM. absent: CVA tenderness (L), CVA tenderness (R) - Neurological Exam Neurological Exam: Alert, Awake, CN II-XII Intact, Oriented x3 Neuro motor strength exam: Left Upper Extremity: 5, Right Upper Extremity: 5, Left Lower Extremity: 5, Right Lower Extremity: 5 - Psychiatric Exam Psychiatric exam: Normal Affect, Normal Mood - Skin Skin Exam: Dry, Normal Color, Warm Assessment and Plan - Assessment and Plan (Free Text) Assessment: 56 year old female PMH DM, presented to the ER for a one day history of subjective fever, malaise, and bodyaches. These symptoms were moderate severity , were constant, and were not ameliorated by anything and were not associated with any other symptoms. Over the weekend, patient heavily drank, and states she drinks beer. She also admitted to "eating everything under the sun" and not taking any of her medications. In the ER pt was febrile on arrival 102.8, tachycardia 111, BP 150/71. Glucose 500+. Na 130. Cl 96. Electrolyte derangement likely 2/2 chronic beer consumption. Patient denies any cough, congestion, abd pain, diarrhea, nausea, vomiting, or urinary symptoms. denies headache, no abnormal vaginal discharge 1. Sepsis unclear etiology Pt came in febrile, tachycardic, with elevated WBC Blood c/s: + for Gram negative rods empirically started on Cefepime and Clindamycin IV ID consult CXR : neg Urine c/s Influenza neg HIV test : nonreactive 2. DM type II with Hyperglycemia restarted DM meds, Metformin and Actos Accuchecks IVF hydration 3. Hypertension started lisinopril 10 mg po daily 4. Pseudohyponatremia due to elevated glucose 5. Azotemia IVF hydration 6. Generalized Body Aches, Chest Discomfort - EKG : normal Trop x1 negative DVT Proph Lovenox
--- NOTE | 2017-03-26 15:33 | CARD ---
APPROVED REPORT EKG Measurement Heart [id number] <Conclusion> Normal sinus rhythm Normal ECG
--- NOTE | 2017-03-26 17:21 | CARD ---
APPROVED REPORT EXAM: Two-dimensional and M-mode echocardiogram with Doppler and color Doppler. Other Information Quality : AverageRhythm : NSR INDICATION Infection: 2D DIMENSIONS IVSd1.25 (0.7-1.1cm)LVDd3.97 (3.9-5.9cm) LVOT Diameter2.23 (1.8-2.4cm)PWd1.17 (0.7-1.1cm) IVSs1.44 (0.8-1.2cm)LVDs3.01 (2.5-4.0cm) FS (%) 24.3 %PWs1.14 (0.8-1.2cm) LVEF (%)55.0 (>50%) M-Mode DIMENSIONS Left Atrium (MM)4.06 (2.5-4.0cm)IVSd1.12 (0.7-1.1cm) Aortic Root3.06 (2.2-3.7cm)LVDd5.47 (4.0-5.6cm) Aortic Cusp Exc.1.94 (1.5-2.0cm)PWd1.03 (0.7-1.1cm) IVSs1.24 cmFS (%) 41 % LVDs3.21 (2.0-3.8cm)PWs1.85 cm Mitral Valve MV E Wsakkwwv322.7cm/sMV DECEL [id number] A Vwepkqfu837.4cm/s MV NCP70oyH/A ratio0.9MVA (PHT)3.90cm2 TDI Lateral E' Peak V10.02cm/sMedial E' Peak V9.61cm/sE/Lateral E'10.2 E/Medial E'10.7 LEFT VENTRICLE The left ventricle is normal size. There is borderline concentric left ventricular hypertrophy. The left ventricular function is normal. The left ventricular ejection fraction is within the normal range. There is normal LV segmental wall motion. Transmitral Doppler flow pattern is Grade I-abnormal relaxation pattern. RIGHT VENTRICLE The right ventricle is normal size. There is normal right ventricular wall thickness. The right ventricular systolic function is normal. ATRIA The left atrium size is normal. The right atrium size is normal. AORTIC VALVE The aortic valve is not well visualized. No aortic regurgitation is present. There is no aortic valvular stenosis. MITRAL VALVE The mitral valve is mildly thickened. There is no mitral valve stenosis. Mitral regurgitation is trace. TRICUSPID VALVE The tricuspid valve is normal in structure and function. There is no tricuspid valve regurgitation noted. PULMONIC VALVE The pulmonary valve is normal in structure and function. There is no pulmonic valvular regurgitation. GREAT VESSELS The aortic root is normal in size. The IVC is normal in size and collapses >50% with inspiration. PERICARDIAL EFFUSION There is a trace loculated anterior pericardial effusion. <Conclusion> Poor Echo window No clear vegitation seen The left ventricle is normal size. There is borderline concentric left ventricular hypertrophy. The left ventricular function is normal. The left ventricular ejection fraction is within the normal range. There is normal LV segmental wall motion. Transmitral Doppler flow pattern is Grade I-abnormal relaxation pattern.
[2017-03-27] MEDS: Clindamycin 300 MG in Sodium Chloride 0.9% 100 ML IVPB SCH (05:39)
[2017-03-27] MEDS: Cefepime 1 GM in Sodium Chloride 0.9% 100 ML IVPB SCH (06:35)
[2017-03-27] MEDS: Enoxaparin 40 mg Syringe SC SCH (10:00)
--- NOTE | 2017-03-27 11:16 | CP.PCM.PN ---
Subjective - Date & Time of Evaluation Date of Evaluation: 03/27/17 Time of Evaluation: 11:30 - Subjective Subjective: Patient seen and examine bedside. Feeling better. Still febrile with TMax 101 Denies any abdominal pain, nausea, vomiting, dysuria,diarrhea, cough, sore throat, chills No acute issues overnight BP 129/67 WBc trended down to 8.9 Blood culture positive for E.Coli sensitive to Pip/tazo Objective - Vital Signs/Intake and Output Vital Signs (last 24 hours): Temp Pulse Resp BP Pulse Ox 99.3 F 68 20 128/67 99 03/27/17 08:57 03/27/17 09:58 03/27/17 08:57 03/27/17 09:58 03/27/17 08:57 - Medications Medications: Current Medications Acetaminophen (Tylenol 325mg Tab) 650 mg PO Q6 PRN PRN Reason: Fever >100.4 F Last Admin: 03/26/17 16:25 Dose: 650 mg Enoxaparin Sodium (Lovenox) 40 mg SC DAILY [facility] PRN Reason: Protocol Last Admin: 03/27/17 10:00 Dose: 40 mg Glipizide (Glucotrol) 5 mg PO ACB [facility] Piperacillin Sod/Tazobactam (Sod 3.375 gm/ Sodium Chloride) 100 mls @ 100 mls/ hr IVPB Q6 [facility] Ibuprofen (Motrin Tab) 400 mg PO Q6 PRN PRN Reason: Fever >100.4 F Last Admin: 03/26/17 23:58 Dose: 400 mg Insulin Human Lispro (Humalog) 0 units SC ACHS [facility] PRN Reason: Protocol Last Admin: 03/26/17 22:25 Dose: Not Given Lisinopril (Zestril) 10 mg PO DAILY [facility] Last Admin: 03/27/17 09:58 Dose: 10 mg Metformin HCl (Glucophage) 1,000 mg PO BIDWM [facility] Last Admin: 03/27/17 09:54 Dose: 1,000 mg Ondansetron HCl (Zofran Inj) 4 mg IVP Q6 PRN PRN Reason: Nausea/Vomiting Last Admin: 03/25/17 10:02 Dose: 4 mg Pioglitazone HCl (Actos) 30 mg PO DAILY [facility] Last Admin: 03/27/17 09:56 Dose: 30 mg - Labs Labs: PT 10.4 Seconds (9.8-13.1) 03/25/17 00:39 INR 0.9 (0.9-1.2) 03/25/17 00:39 APTT 31.0 Seconds (25.6-37.1) 03/25/17 00:39 - Constitutional Appears: Non-toxic, No Acute Distress - Head Exam Head Exam: ATRAUMATIC, NORMAL INSPECTION, NORMOCEPHALIC - Eye Exam Eye Exam: EOMI, Normal appearance, PERRL Pupil Exam: NORMAL ACCOMODATION - ENT Exam ENT Exam: Mucous Membranes Moist, Normal Exam - Neck Exam Neck Exam: Full ROM, Normal Inspection - Respiratory Exam Respiratory Exam: Clear to Ausculation Bilateral, NORMAL BREATHING PATTERN. absent: Rales, Rhonchi, Wheezes - Cardiovascular Exam Cardiovascular Exam: REGULAR RHYTHM, RRR, +S1, +S2. absent: JVD - GI/Abdominal Exam GI & Abdominal Exam: Soft, Normal Bowel Sounds. absent: Distended, Guarding, Tenderness, Rebound - Rectal Exam Rectal Exam: Deferred - Extremities Exam Extremities Exam: Full ROM, Normal Capillary Refill, Normal Inspection. absent : Calf Tenderness, Pedal Edema - Back Exam Back Exam: NORMAL INSPECTION - Neurological Exam Neurological Exam: Alert, Awake, CN II-XII Intact, Oriented x3 - Psychiatric Exam Psychiatric exam: Normal Affect - Skin Skin Exam: Dry, Intact, Normal Color, Warm Assessment and Plan - Assessment and Plan (Free Text) Assessment: 56 year old female PMH DM, presented to the ER for a one day history of subjective fever, malaise, and bodyaches. These symptoms were moderate severity , were constant, and were not ameliorated by anything and were not associated with any other symptoms. Over the weekend, patient heavily drank, and states she drinks beer. She also admitted to "eating everything under the sun" and not taking any of her medications. In the ER pt was febrile on arrival 102.8, tachycardia 111, BP 150/71. Glucose 500+. Na 130. Cl 96. Electrolyte derangement likely 2/2 chronic beer consumption. Patient denies any cough, congestion, abd pain, diarrhea, nausea, vomiting, or urinary symptoms. denies headache, no abnormal vaginal discharge Patient was admitted with fever of unclear etiology, uncontrolled DM and electrolyte derangements Her blood cultures now growing E.Coli 1. Gram negative Sepsis unclear source Pt came in febrile, tachycardic, with elevated WBC Blood culture positive for E.Coli sensitive to Pip/tazo Will d/c cefepime and Clindamycin Start Zosyn IV for now ID on consult following up Echo showed no vegetations Influenza neg, CXR -wnl, HIV - non reactive 2. DM type II with Hyperglycemia restarted DM meds, Metformin and Actos Strated Glucotrol 5 mg po AC Continue Accuchecks, insulin coverage , diabetic diet Follow up Hgb A1c ,lipid profile, TSH 3. Hypertension started lisinopril 10 mg po daily 4. Pseudohyponatremia due to elevated glucose 5. Azotemia=resolved given IVF hydration 6. Generalized Body Aches, Chest Discomfort EKG : normal Trop x3 negative 7. Mild anemia Most likely dilutional 8.DVT Proph Lovenox
[2017-03-27] MEDS: Insulin Lispro (humaLOG) 100 Units/ml Inj SC SCH ×4 (11:30→21:14)
[2017-03-27] MEDS ORDERED: Piperacillin/Tazobact 3.375 GM in Sodium Chloride 0.9% 100 ML IVPB SCH (16:00)
[2017-03-27] MEDS: Meropenem 1 GM in Sodium Chloride 0.9% 100 ML IVPB SCH (17:08)
[2017-03-28] MEDS: Meropenem 1 GM in Sodium Chloride 0.9% 100 ML IVPB SCH ×3 (00:10→16:30)
[2017-03-28 07:57] LABS: HEMATOCRIT 30.8 % (34.0-47.0); MEAN CELL VOLUME 89.1 fl (81.0-99.0); MEAN CORPUSCULAR HEMOGLOBIN 29.5 pg (27.0-31.0); MEAN CORPUSCULAR HGB CONC 33.2 g/dL (33.0-37.0); RED CELL DISTRIBUTION WIDTH 12.6 % (11.5-14.5); WHITE BLOOD COUNT 5.8 K/uL (4.8-10.8)
[2017-03-28 08:34] LABS: BLOOD UREA NITROGEN 10 mg/dl (7-17); CALCIUM 8.7 mg/dL (8.4-10.2); CARBON DIOXIDE 28 mmol/L (22-30); CHLORIDE 103 mmol/L (98-107); CHOLESTEROL 155 mg/dL (0-199); GFR AFRICAN-AMERICAN > 60; GLUCOSE,RANDOM 241 mg/dL (65-105); POTASSIUM 3.9 MMOL/L (3.6-5.0); SODIUM 137 mmol/l (132-148)
[2017-03-28] MEDS: Insulin Lispro (humaLOG) 100 Units/ml Inj SC SCH ×4 (08:45→22:23)
[2017-03-28 08:58] LABS: THYROID STIMULATING HORMONE 1.33 mIU/ML (0.46-4.68)
[2017-03-28] MEDS: Enoxaparin 40 mg Syringe SC SCH (09:17)
--- NOTE | 2017-03-28 10:15 | CP.PCM.PN ---
Subjective - Date & Time of Evaluation Date of Evaluation: 03/28/17 Time of Evaluation: 08:30 - Subjective Subjective: Patient seen and examined bedside. Feeling much better today. Sitting up in th ebed, ambulating , tolerating po intake. Her appetite has improved. Denies any SOB, CP, abdominal pain, dysuria Tmax 101.5 last 12 hours , WBC trended down to 5.8 Objective - Vital Signs/Intake and Output Vital Signs (last 24 hours): Temp Pulse Resp BP Pulse Ox 99.4 F 69 18 145/74 97 03/28/17 08:13 03/28/17 09:17 03/28/17 08:13 03/28/17 09:17 03/28/17 08:13 - Medications Medications: Current Medications Acetaminophen (Tylenol 325mg Tab) 650 mg PO Q6 PRN PRN Reason: Fever >100.4 F Last Admin: 03/26/17 16:25 Dose: 650 mg Enoxaparin Sodium (Lovenox) 40 mg SC DAILY [facility] PRN Reason: Protocol Last Admin: 03/28/17 09:17 Dose: 40 mg Fenofibrate (Tricor) 48 mg PO DAILY [facility] Glipizide (Glucotrol) 5 mg PO ACB [facility] Last Admin: 03/28/17 09:17 Dose: 5 mg Meropenem 1 gm/ Sodium (Chloride) 100 mls @ 100 mls/hr IVPB Q8 [facility] Last Admin: 03/28/17 09:16 Dose: 100 mls/hr Ibuprofen (Motrin Tab) 400 mg PO Q6 PRN PRN Reason: Fever >100.4 F Last Admin: 03/27/17 16:34 Dose: 400 mg Insulin Human Lispro (Humalog) 0 units SC ACHS [facility] PRN Reason: Protocol Last Admin: 03/28/17 08:45 Dose: 3 u Lisinopril (Zestril) 10 mg PO DAILY [facility] Last Admin: 03/28/17 09:17 Dose: 10 mg Metformin HCl (Glucophage) 1,000 mg PO BIDWM [facility] Last Admin: 03/28/17 09:16 Dose: 1,000 mg Ondansetron HCl (Zofran Inj) 4 mg IVP Q6 PRN PRN Reason: Nausea/Vomiting Last Admin: 03/25/17 10:02 Dose: 4 mg Pioglitazone HCl (Actos) 30 mg PO DAILY [facility] Last Admin: 03/28/17 09:17 Dose: 30 mg - Labs Labs: 03/28/17 05:30 03/28/17 05:30 PT 10.4 Seconds (9.8-13.1) 03/25/17 00:39 INR 0.9 (0.9-1.2) 03/25/17 00:39 APTT 31.0 Seconds (25.6-37.1) 03/25/17 00:39 - Constitutional Appears: Non-toxic, No Acute Distress - Head Exam Head Exam: ATRAUMATIC, NORMAL INSPECTION, NORMOCEPHALIC - Eye Exam Eye Exam: EOMI, Normal appearance, PERRL Pupil Exam: NORMAL ACCOMODATION - ENT Exam ENT Exam: Mucous Membranes Moist, Normal Exam - Neck Exam Neck Exam: Full ROM, Normal Inspection - Respiratory Exam Respiratory Exam: Clear to Ausculation Bilateral, NORMAL BREATHING PATTERN. absent: Rales, Rhonchi, Wheezes - Cardiovascular Exam Cardiovascular Exam: REGULAR RHYTHM, RRR, +S1, +S2. absent: JVD - GI/Abdominal Exam GI & Abdominal Exam: Soft, Normal Bowel Sounds. absent: Distended, Guarding, Tenderness, Rebound - Rectal Exam Rectal Exam: Deferred - Extremities Exam Extremities Exam: Full ROM, Normal Capillary Refill, Normal Inspection. absent : Calf Tenderness, Pedal Edema - Back Exam Back Exam: NORMAL INSPECTION - Neurological Exam Neurological Exam: Alert, Awake, CN II-XII Intact, Normal Gait, Oriented x3 - Psychiatric Exam Psychiatric exam: Normal Affect, Normal Mood - Skin Skin Exam: Dry, Intact, Normal Color, Warm Assessment and Plan - Assessment and Plan (Free Text) Assessment: 56 year old female PMH DM, presented to the ER for a one day history of subjective fever, malaise, and bodyaches. These symptoms were moderate severity , were constant, and were not ameliorated by anything and were not associated with any other symptoms. Over the weekend, patient heavily drank, and states she drinks beer. She also admitted to "eating everything under the sun" and not taking any of her medications. In the ER pt was febrile on arrival 102.8, tachycardia 111, BP 150/71. Glucose 500+. Na 130. Cl 96. Electrolyte derangement likely 2/2 chronic beer consumption. Patient denies any cough, congestion, abd pain, diarrhea, nausea, vomiting, or urinary symptoms. denies headache, no abnormal vaginal discharge Patient was admitted with fever of unclear etiology, uncontrolled DM and electrolyte derangements Her blood and urine cultures growing ESBL E.Coli 1. Gram negative Sepsis secondary to ESBL E.Coli Blood cultures positive for ESBL E. Coli possible source is UTI since urine cultures also came positive with the same organism Pt came in febrile, tachycardic, with elevated WBC Will d/c cefepime and Clindamycin Started Meropenem 03/27 ID on consult following up Echo showed no vegetations 2. UTI secondary to ESBL E.Coli urine cultures positive. patient denies any urinary symptoms On Meropenem IV 3. DM type II with Hyperglycemia restarted DM meds, Metformin and Actos Strated Glucotrol 5 mg po AC Continue Accuchecks, insulin coverage , diabetic diet Follow up Hgb A1c 4. Hypertension started lisinopril 10 mg po daily 5. Dyslipidemia TG 288 start Tricor 6. Pseudohyponatremia due to elevated glucose 7. Azotemia=resolved given IVF hydration 8. Generalized Body Aches, Chest Discomfort-improved EKG : normal Trop x3 negative 9 Mild anemia Most likely dilutional 10.DVT Proph Lovenox
[2017-03-29] MEDS: Meropenem 1 GM in Sodium Chloride 0.9% 100 ML IVPB SCH ×3 (00:17→17:20)
[2017-03-29 06:48] LABS: HEMATOCRIT 30.6 % (34.0-47.0); MEAN CELL VOLUME 88.6 fl (81.0-99.0); MEAN CORPUSCULAR HEMOGLOBIN 29.8 pg (27.0-31.0); MEAN CORPUSCULAR HGB CONC 33.6 g/dL (33.0-37.0); RED CELL DISTRIBUTION WIDTH 12.9 % (11.5-14.5); WHITE BLOOD COUNT 5.8 K/uL (4.8-10.8)
[2017-03-29 06:59] LABS: BLOOD UREA NITROGEN 12 mg/dl (7-17); CALCIUM 9.1 mg/dL (8.4-10.2); CARBON DIOXIDE 30 mmol/L (22-30); CHLORIDE 100 mmol/L (98-107); GFR AFRICAN-AMERICAN > 60; GLUCOSE,RANDOM 298 mg/dL (65-105); SODIUM 136 mmol/l (132-148)
[2017-03-29] MEDS: Enoxaparin 40 mg Syringe SC SCH (08:48)
[2017-03-29] MEDS: Insulin Lispro (humaLOG) 100 Units/ml Inj SC SCH ×4 (08:49→22:03)
--- NOTE | 2017-03-29 10:55 | CP.PCM.PN ---
Subjective - Date & Time of Evaluation Date of Evaluation: 03/29/17 Time of Evaluation: 10:30 - Subjective Subjective: No fever feels very much better no CP no SOB no cough no abd pain no dysuria Objective - Vital Signs/Intake and Output Vital Signs (last 24 hours): Temp Pulse Resp BP Pulse Ox 98.8 F 70 20 114/72 98 03/29/17 08:34 03/29/17 08:48 03/29/17 08:34 03/29/17 08:48 03/29/17 08:34 - Medications Medications: Current Medications Acetaminophen (Tylenol 325mg Tab) 650 mg PO Q6 PRN PRN Reason: Fever >100.4 F Last Admin: 03/26/17 16:25 Dose: 650 mg Enoxaparin Sodium (Lovenox) 40 mg SC DAILY [facility] PRN Reason: Protocol Last Admin: 03/29/17 08:48 Dose: 40 mg Fenofibrate (Tricor) 48 mg PO DAILY [facility] Last Admin: 03/29/17 08:48 Dose: 48 mg Glipizide (Glucotrol) 5 mg PO ACB [facility] Last Admin: 03/29/17 08:48 Dose: 5 mg Meropenem 1 gm/ Sodium (Chloride) 100 mls @ 100 mls/hr IVPB Q8 [facility] Last Admin: 03/29/17 08:47 Dose: 100 mls/hr Ibuprofen (Motrin Tab) 400 mg PO Q6 PRN PRN Reason: Fever >100.4 F Last Admin: 03/27/17 16:34 Dose: 400 mg Insulin Human Lispro (Humalog) 0 units SC ACHS [facility] PRN Reason: Protocol Last Admin: 03/29/17 08:49 Dose: 3 u Lisinopril (Zestril) 10 mg PO DAILY [facility] Last Admin: 03/29/17 08:48 Dose: 10 mg Metformin HCl (Glucophage) 1,000 mg PO BIDWM [facility] Last Admin: 03/29/17 08:48 Dose: 1,000 mg Ondansetron HCl (Zofran Inj) 4 mg IVP Q6 PRN PRN Reason: Nausea/Vomiting Last Admin: 03/25/17 10:02 Dose: 4 mg Pioglitazone HCl (Actos) 30 mg PO DAILY [facility] Last Admin: 03/29/17 08:48 Dose: 30 mg - Labs Labs: 03/29/17 06:30 03/29/17 06:30 PT 10.4 Seconds (9.8-13.1) 03/25/17 00:39 INR 0.9 (0.9-1.2) 03/25/17 00:39 APTT 31.0 Seconds (25.6-37.1) 03/25/17 00:39 - Constitutional Appears: Non-toxic, No Acute Distress - Head Exam Head Exam: NORMAL INSPECTION, NORMOCEPHALIC - Eye Exam Eye Exam: EOMI, Normal appearance, PERRL Pupil Exam: NORMAL ACCOMODATION - ENT Exam ENT Exam: Mucous Membranes Moist, Normal External Ear Exam - Neck Exam Neck Exam: Full ROM. absent: Meningismus - Respiratory Exam Respiratory Exam: NORMAL BREATHING PATTERN. absent: Respiratory Distress - Cardiovascular Exam Cardiovascular Exam: REGULAR RHYTHM, +S1, +S2 - GI/Abdominal Exam GI & Abdominal Exam: Soft, Normal Bowel Sounds. absent: Tenderness - Extremities Exam Extremities Exam: Full ROM, Normal Capillary Refill. absent: Calf Tenderness - Back Exam Back Exam: Full ROM. absent: CVA tenderness (L), CVA tenderness (R) - Neurological Exam Neurological Exam: Alert, Awake, CN II-XII Intact, Oriented x3 Neuro motor strength exam: Left Upper Extremity: 5, Right Upper Extremity: 5, Left Lower Extremity: 5, Right Lower Extremity: 5 - Psychiatric Exam Psychiatric exam: Normal Affect, Normal Mood - Skin Skin Exam: Dry, Normal Color, Warm Assessment and Plan - Assessment and Plan (Free Text) Assessment: 56 year old female PMH DM, presented to the ER for a one day history of subjective fever, malaise, and bodyaches. These symptoms were moderate severity , were constant, and were not ameliorated by anything and were not associated with any other symptoms. Over the weekend, patient heavily drank, and states she drinks beer. She also admitted to "eating everything under the sun" and not taking any of her medications. In the ER pt was febrile on arrival 102.8, tachycardia 111, BP 150/71. Glucose 500+. Na 130. Cl 96. Electrolyte derangement likely 2/2 chronic beer consumption. Patient denies any cough, congestion, abd pain, diarrhea, nausea, vomiting, or urinary symptoms. denies headache, no abnormal vaginal discharge Patient was admitted with fever of unclear etiology, uncontrolled DM and electrolyte derangements Her blood and urine cultures grew ESBL E.Coli 1. Gram negative Sepsis secondary to ESBL E.Coli Blood cultures positive for ESBL E. Coli possible source is UTI since urine cultures also came positive with the same organism Pt came in febrile, tachycardic, with elevated WBC d/c cefepime and Clindamycin Started Meropenem 03/27 - ID rec 14-21 days IV Meropenem ( Apr 09) ID on consult following up Echo showed no vegetations 2. UTI secondary to ESBL E.Coli urine cultures positive. patient denies any urinary symptoms On Meropenem IV 3. DM type II with Hyperglycemia restarted DM meds, Metformin and Actos Increase Glucotrol 5 mg BID Continue Accuchecks, insulin coverage , diabetic diet Follow up Hgb A1c 4. Hypertension started lisinopril 10 mg po daily 5. Dyslipidemia TG 288 start Tricor 6. Pseudohyponatremia due to elevated glucose 7. Azotemia=resolved given IVF hydration 8. Generalized Body Aches, Chest Discomfort-improved EKG : normal Trop x3 negative 9 Mild anemia Most likely dilutional 10.DVT Proph Lovenox
--- NOTE | 2017-03-29 11:51 | CP.PCM.PN ---
Subjective - Date & Time of Evaluation Date of Evaluation: 03/29/17 Time of Evaluation: 11:50 - Subjective Subjective: ID Note- pt. seen and examined today. She is much more awake and alert and smiles and states feels much better. Denies any abd. pain, denies any fever or chills. Objective - Vital Signs/Intake and Output Vital Signs (last 24 hours): Temp Pulse Resp BP Pulse Ox 98.8 F 70 20 114/72 98 03/29/17 08:34 03/29/17 08:48 03/29/17 08:34 03/29/17 08:48 03/29/17 08:34 - Medications Medications: Current Medications Acetaminophen (Tylenol 325mg Tab) 650 mg PO Q6 PRN PRN Reason: Fever >100.4 F Last Admin: 03/26/17 16:25 Dose: 650 mg Enoxaparin Sodium (Lovenox) 40 mg SC DAILY [facility] PRN Reason: Protocol Last Admin: 03/29/17 08:48 Dose: 40 mg Fenofibrate (Tricor) 48 mg PO DAILY [facility] Last Admin: 03/29/17 08:48 Dose: 48 mg Glipizide (Glucotrol) 5 mg PO ACB [facility] Last Admin: 03/29/17 08:48 Dose: 5 mg Meropenem 1 gm/ Sodium (Chloride) 100 mls @ 100 mls/hr IVPB Q8 [facility] Last Admin: 03/29/17 08:47 Dose: 100 mls/hr Ibuprofen (Motrin Tab) 400 mg PO Q6 PRN PRN Reason: Fever >100.4 F Last Admin: 03/27/17 16:34 Dose: 400 mg Insulin Human Lispro (Humalog) 0 units SC ACHS [facility] PRN Reason: Protocol Last Admin: 03/29/17 08:49 Dose: 3 u Lisinopril (Zestril) 10 mg PO DAILY [facility] Last Admin: 03/29/17 08:48 Dose: 10 mg Metformin HCl (Glucophage) 1,000 mg PO BIDWM [facility] Last Admin: 03/29/17 08:48 Dose: 1,000 mg Ondansetron HCl (Zofran Inj) 4 mg IVP Q6 PRN PRN Reason: Nausea/Vomiting Last Admin: 03/25/17 10:02 Dose: 4 mg Pioglitazone HCl (Actos) 30 mg PO DAILY [facility] Last Admin: 03/29/17 08:48 Dose: 30 mg - Labs Labs: - Additional Findings Additional findings: - Constitutional Additional comments: NAD, alert - Head Exam Head Exam: ATRAUMATIC - Eye Exam Eye Exam: EOMI Pupil Exam: PERRL - ENT Exam ENT Exam: Normal Oropharynx - Neck Exam Neck exam: Positive for: Full Rom Additional comments: supple - Respiratory Exam Respiratory Exam: Clear to Auscultation Bilateral, NORMAL BREATHING PATTERN - Cardiovascular Exam Cardiovascular Exam: RRR, +S1, +S2 - GI/Abdominal Exam GI & Abdominal Exam: Normal Bowel Sounds, Soft Additional comments: NT, ND No CVA tenderness B/L - Neurological Exam Additional comments: AAO x 3 Laboratory Results - last 72 hr 03/26/17 03/26/17 03/26/17 15:28 15:52 22:14 WBC RBC Hgb Hct MCV MCH MCHC RDW Plt Count Sodium Potassium Chloride Carbon Dioxide Anion Gap BUN Creatinine Est GFR ( Amer) Est GFR (Non-Af Amer) POC Glucose (mg/dL) 198 H 313 H Random Glucose Hemoglobin A1c Calcium Troponin I < 0.0120 Triglycerides Cholesterol LDL Cholesterol Direct HDL Cholesterol TSH 3rd Generation 03/26/17 03/27/17 03/27/17 23:25 05:57 10:51 WBC RBC Hgb Hct MCV MCH MCHC RDW Plt Count Sodium Potassium Chloride Carbon Dioxide Anion Gap BUN Creatinine Est GFR ( Amer) Est GFR (Non-Af Amer) POC Glucose (mg/dL) 279 H 383 H Random Glucose Hemoglobin A1c Calcium Troponin I < 0.0120 Triglycerides Cholesterol LDL Cholesterol Direct HDL Cholesterol TSH 3rd Generation 03/27/17 03/27/17 03/27/17 17:21 17:36 21:00 WBC RBC Hgb Hct MCV MCH MCHC RDW Plt Count Sodium Potassium Chloride Carbon Dioxide Anion Gap BUN Creatinine Est GFR ( Amer) Est GFR (Non-Af Amer) POC Glucose (mg/dL) 164 H 143 H 154 H Random Glucose Hemoglobin A1c Calcium Troponin I Triglycerides Cholesterol LDL Cholesterol Direct HDL Cholesterol TSH 3rd Generation 03/28/17 03/28/17 03/28/17 05:30 05:30 05:30 WBC 5.8 RBC 3.46 L Hgb 10.2 L Hct 30.8 L MCV 89.1 MCH 29.5 MCHC 33.2 RDW 12.6 Plt Count 249 Sodium 137 Potassium 3.9 Chloride 103 Carbon Dioxide 28 Anion Gap 10 BUN 10 Creatinine 0.7 Est GFR ( Amer) > 60 Est GFR (Non-Af Amer) > 60 POC Glucose (mg/dL) Random Glucose 241 H Hemoglobin A1c 11.6 H Calcium 8.7 Troponin I Triglycerides 288 H Cholesterol 155 LDL Cholesterol Direct 95 HDL Cholesterol 19 L TSH 3rd Generation 1.33 03/28/17 03/28/17 03/28/17 05:33 10:40 17:01 WBC RBC Hgb Hct MCV MCH MCHC RDW Plt Count Sodium Potassium Chloride Carbon Dioxide Anion Gap BUN Creatinine Est GFR ( Amer) Est GFR (Non-Af Amer) POC Glucose (mg/dL) 264 H 333 H 166 H Random Glucose Hemoglobin A1c Calcium Troponin I Triglycerides Cholesterol LDL Cholesterol Direct HDL Cholesterol TSH 3rd Generation 03/28/17 03/29/17 03/29/17 21:43 06:00 06:30 WBC 5.8 RBC 3.46 L Hgb 10.3 L Hct 30.6 L MCV 88.6 MCH 29.8 MCHC 33.6 RDW 12.9 Plt Count 266 Sodium Potassium Chloride Carbon Dioxide Anion Gap BUN Creatinine Est GFR ( Amer) Est GFR (Non-Af Amer) POC Glucose (mg/dL) 243 H 261 H Random Glucose Hemoglobin A1c Calcium Troponin I Triglycerides Cholesterol LDL Cholesterol Direct HDL Cholesterol TSH 3rd Generation 03/29/17 03/29/17 06:30 11:09 WBC RBC Hgb Hct MCV MCH MCHC RDW Plt Count Sodium 136 Potassium 4.0 Chloride 100 Carbon Dioxide 30 Anion Gap 11 BUN 12 Creatinine 0.7 Est GFR ( Amer) > 60 Est GFR (Non-Af Amer) > 60 POC Glucose (mg/dL) 364 H Random Glucose 298 H Hemoglobin A1c Calcium 9.1 Troponin I Triglycerides Cholesterol LDL Cholesterol Direct HDL Cholesterol TSH 3rd Generation Micro[facility] 03/25/17 00:50 Blood Blood Culture - Preliminary NO GROWTH AFTER 4 DAYS 03/26/17 15:28 Blood Blood Culture - Preliminary NO GROWTH AFTER 48 HOURS 03/26/17 15:00 Blood Blood Culture - Preliminary NO GROWTH AFTER 48 HOURS 03/25/17 00:15 Urine,Clean Catch Urine Culture - Final Escherichia Coli 03/25/17 00:30 Blood Blood Culture - Final Escherichia Coli 03/25/17 00:30 Blood Gram Stain - Final Assessment and Plan (1) Hyperglycemia due to type 2 diabetes mellitus Status: Acute (2) Bacteremia due to Escherichia coli Status: Acute (3) E. coli UTI (urinary tract infection) Status: Acute - Assessment and Plan (Free Text) Assessment: A/P- 56 year old female with uncontrolled diabetes admitted with bodyaches, malaise and fever and found to have e.coli UTI and bacteremia. afebrile today normal wbc count urine cx- e.coli blood cx-1 out of 2 E.Coli was later reported as ESBL CXR- negative as per report echo- no clear vegetations as per [employer] supervisor's report. repeat blood cx- neg x 3 plan- advise to continue with IV meropenem for ESBL e.coli bacteremia. day #3 today. will need total of 14-21 days of IV abx for this e.coli bactermia. once pt. is clear from medical standpoint for discharge would advise picc line to complete rest of her abx treatment as outpatient. will need 2 repeat blood cx after completion of her abx treatment as well. all above d/w Hospitalist and with patient.
[2017-03-30] MEDS: Meropenem 1 GM in Sodium Chloride 0.9% 100 ML IVPB SCH ×3 (00:56→18:04)
[2017-03-30] MEDS: Insulin Lispro (humaLOG) 100 Units/ml Inj SC SCH ×4 (08:16→21:36)
[2017-03-30] MEDS: Enoxaparin 40 mg Syringe SC SCH (09:17)
--- NOTE | 2017-03-30 14:56 | CP.PCM.PN ---
Subjective - Date & Time of Evaluation Date of Evaluation: 03/30/17 Time of Evaluation: 12:00 - Subjective Subjective: No fever feels very much better denies CP no cough no abd pain no dysuria Objective - Vital Signs/Intake and Output Vital Signs (last 24 hours): Temp Pulse Resp BP Pulse Ox 98.7 F 70 20 104/59 L 96 03/30/17 08:10 03/30/17 09:14 03/30/17 08:10 03/30/17 09:14 03/30/17 08:10 - Medications Medications: Current Medications Acetaminophen (Tylenol 325mg Tab) 650 mg PO Q6 PRN PRN Reason: Fever >100.4 F Last Admin: 03/26/17 16:25 Dose: 650 mg Enoxaparin Sodium (Lovenox) 40 mg SC DAILY [facility] PRN Reason: Protocol Last Admin: 03/30/17 09:17 Dose: 40 mg Fenofibrate (Tricor) 48 mg PO DAILY [facility] Last Admin: 03/30/17 09:15 Dose: 48 mg Glipizide (Glucotrol) 10 mg PO BIDAC [facility] Meropenem 1 gm/ Sodium (Chloride) 100 mls @ 100 mls/hr IVPB Q8 [facility] Last Admin: 03/30/17 09:18 Dose: 100 mls/hr Ibuprofen (Motrin Tab) 400 mg PO Q6 PRN PRN Reason: Fever >100.4 F Last Admin: 03/27/17 16:34 Dose: 400 mg Insulin Human Lispro (Humalog) 0 units SC ACHS [facility] PRN Reason: Protocol Last Admin: 03/30/17 08:16 Dose: 2 u Lisinopril (Zestril) 10 mg PO DAILY [facility] Last Admin: 03/30/17 09:14 Dose: Not Given Metformin HCl (Glucophage) 1,000 mg PO BIDWM [facility] Last Admin: 03/30/17 09:13 Dose: 1,000 mg Ondansetron HCl (Zofran Inj) 4 mg IVP Q6 PRN PRN Reason: Nausea/Vomiting Last Admin: 03/25/17 10:02 Dose: 4 mg Pioglitazone HCl (Actos) 30 mg PO DAILY [facility] Last Admin: 03/30/17 09:14 Dose: 30 mg - Labs Labs: 03/29/17 06:30 03/29/17 06:30 PT 10.4 Seconds (9.8-13.1) 03/25/17 00:39 INR 0.9 (0.9-1.2) 03/25/17 00:39 APTT 31.0 Seconds (25.6-37.1) 03/25/17 00:39 Assessment and Plan - Assessment and Plan (Free Text) Assessment: - Constitutional Appears: Non-toxic, No Acute Distress - Head Exam Head Exam: NORMAL INSPECTION, NORMOCEPHALIC - Eye Exam Eye Exam: EOMI, Normal appearance, PERRL Pupil Exam: NORMAL ACCOMODATION - ENT Exam ENT Exam: Mucous Membranes Moist, Normal External Ear Exam - Neck Exam Neck Exam: Full ROM. absent: Meningismus - Respiratory Exam Respiratory Exam: NORMAL BREATHING PATTERN. absent: Respiratory Distress - Cardiovascular Exam Cardiovascular Exam: REGULAR RHYTHM, +S1, +S2 - GI/Abdominal Exam GI & Abdominal Exam: Soft, Normal Bowel Sounds. absent: Tenderness - Extremities Exam Extremities Exam: Full ROM, Normal Capillary Refill. absent: Calf Tenderness - Back Exam Back Exam: Full ROM. absent: CVA tenderness (L), CVA tenderness (R) - Neurological Exam Neurological Exam: Alert, Awake, CN II-XII Intact, Oriented x3 Neuro motor strength exam: Left Upper Extremity: 5, Right Upper Extremity: 5, Left Lower Extremity: 5, Right Lower Extremity: 5 - Psychiatric Exam Psychiatric exam: Normal Affect, Normal Mood - Skin Skin Exam: Dry, Normal Color, Warm Assessment and Plan - Assessment and Plan (Free Text) Assessment: 56 year old female PMH DM, presented to the ER for a one day history of subjective fever, malaise, and bodyaches. These symptoms were moderate severity , were constant, and were not ameliorated by anything and were not associated with any other symptoms. Over the weekend, patient heavily drank, and states she drinks beer. She also admitted to "eating everything under the sun" and not taking any of her medications. In the ER pt was febrile on arrival 102.8, tachycardia 111, BP 150/71. Glucose 500+. Na 130. Cl 96. Electrolyte derangement likely 2/2 chronic beer consumption. Patient denies any cough, congestion, abd pain, diarrhea, nausea, vomiting, or urinary symptoms. denies headache, no abnormal vaginal discharge Patient was admitted with fever of unclear etiology, uncontrolled DM and electrolyte derangements Her blood and urine cultures grew ESBL E.Coli 1. Gram negative Sepsis secondary to ESBL E.Coli Blood cultures positive for ESBL E. Coli possible source is UTI since urine cultures also came positive with the same organism Pt came in febrile, tachycardic, with elevated WBC d/c cefepime and Clindamycin Started Meropenem 03/27 - ID rec 14-21 days IV Meropenem ( Apr 09) ID on consult following pt Echo showed no vegetations 2. UTI secondary to ESBL E.Coli urine cultures positive. patient denies any urinary symptoms On Meropenem IV 3. DM type II with Hyperglycemia restarted DM meds, Metformin and Actos added Glucotrol, will Increase Glucotrol 10 mg BID Continue Accuchecks, insulin coverage , diabetic diet Hgb A1c : 11.6 4. Hypertension started lisinopril 10 mg po daily 5. Dyslipidemia TG 288 started Tricor 6. Pseudohyponatremia due to elevated glucose 7. Azotemia=resolved given IVF hydration 8. Generalized Body Aches, Chest Discomfort-improved EKG : normal Trop x3 negative 9 Mild anemia Most likely dilutional 10.DVT Proph Lovenox
[2017-03-31] MEDS: Meropenem 1 GM in Sodium Chloride 0.9% 100 ML IVPB SCH ×3 (00:25→16:08)
[2017-03-31] MEDS: Insulin Lispro (humaLOG) 100 Units/ml Inj SC SCH ×3 (07:45→16:07)
[2017-03-31] MEDS: Enoxaparin 40 mg Syringe SC SCH (09:27)
--- NOTE | 2017-03-31 16:21 | CP.PCM.PN ---
Subjective - Date & Time of Evaluation Date of Evaluation: 03/31/17 Time of Evaluation: 15:00 - Subjective Subjective: Patient was seen and examined bedside. Feeling better. Hemodynamically stable, afebrile. No acute issues overnight. Denies abdominal pain, dysuria. Objective - Vital Signs/Intake and Output Vital Signs (last 24 hours): Temp Pulse Resp BP Pulse Ox 98.2 F 65 18 93/57 L 98 03/31/17 07:30 03/31/17 07:30 03/31/17 07:30 03/31/17 07:30 03/31/17 07:30 - Medications Medications: Current Medications Acetaminophen (Tylenol 325mg Tab) 650 mg PO Q6 PRN PRN Reason: Fever >100.4 F Last Admin: 03/26/17 16:25 Dose: 650 mg Enoxaparin Sodium (Lovenox) 40 mg SC DAILY [facility] PRN Reason: Protocol Last Admin: 03/31/17 09:27 Dose: 40 mg Fenofibrate (Tricor) 48 mg PO DAILY [facility] Last Admin: 03/31/17 09:27 Dose: 48 mg Glipizide (Glucotrol) 10 mg PO BIDAC [facility] Last Admin: 03/31/17 16:06 Dose: 10 mg Meropenem 1 gm/ Sodium (Chloride) 100 mls @ 100 mls/hr IVPB Q8 [facility] Last Admin: 03/31/17 16:08 Dose: 100 mls/hr Ibuprofen (Motrin Tab) 400 mg PO Q6 PRN PRN Reason: Fever >100.4 F Last Admin: 03/27/17 16:34 Dose: 400 mg Insulin Human Lispro (Humalog) 0 units SC ACHS [facility] PRN Reason: Protocol Last Admin: 03/31/17 16:07 Dose: Not Given Lisinopril (Zestril) 10 mg PO DAILY [facility] Last Admin: 03/31/17 09:29 Dose: Not Given Metformin HCl (Glucophage) 1,000 mg PO BIDWM [facility] Last Admin: 03/31/17 16:10 Dose: 1,000 mg Ondansetron HCl (Zofran Inj) 4 mg IVP Q6 PRN PRN Reason: Nausea/Vomiting Last Admin: 03/25/17 10:02 Dose: 4 mg Pioglitazone HCl (Actos) 30 mg PO DAILY [facility] Last Admin: 03/31/17 09:27 Dose: 30 mg Sitagliptin Phosphate (Januvia) 100 mg PO DAILY [facility] - Labs Labs: 03/29/17 06:30 03/29/17 06:30 PT 10.4 Seconds (9.8-13.1) 03/25/17 00:39 INR 0.9 (0.9-1.2) 03/25/17 00:39 APTT 31.0 Seconds (25.6-37.1) 03/25/17 00:39 - Constitutional Appears: Non-toxic, No Acute Distress - Head Exam Head Exam: ATRAUMATIC, NORMAL INSPECTION, NORMOCEPHALIC - Eye Exam Eye Exam: EOMI, Normal appearance, PERRL Pupil Exam: NORMAL ACCOMODATION - ENT Exam ENT Exam: Mucous Membranes Moist, Normal Exam - Neck Exam Neck Exam: Full ROM, Normal Inspection - Respiratory Exam Respiratory Exam: Clear to Ausculation Bilateral, NORMAL BREATHING PATTERN. absent: Rales, Rhonchi, Wheezes - Cardiovascular Exam Cardiovascular Exam: REGULAR RHYTHM, RRR, +S1, +S2. absent: JVD - GI/Abdominal Exam GI & Abdominal Exam: Soft, Normal Bowel Sounds. absent: Distended, Guarding, Tenderness, Rebound - Rectal Exam Rectal Exam: Deferred - Extremities Exam Extremities Exam: Full ROM, Normal Inspection, Pedal Edema. absent: Calf Tenderness, Normal Capillary Refill - Back Exam Back Exam: NORMAL INSPECTION - Neurological Exam Neurological Exam: Alert, Awake, CN II-XII Intact, Oriented x3 - Psychiatric Exam Psychiatric exam: Normal Affect, Normal Mood - Skin Skin Exam: Dry, Intact, Normal Color, Warm Assessment and Plan - Assessment and Plan (Free Text) Assessment: 56 year old female PMH DM, presented to the ER for a one day history of subjective fever, malaise, and bodyaches. These symptoms were moderate severity , were constant, and were not ameliorated by anything and were not associated with any other symptoms. Over the weekend, patient heavily drank, and states she drinks beer. She also admitted to "eating everything under the sun" and not taking any of her medications. In the ER pt was febrile on arrival 102.8, tachycardia 111, BP 150/71. Glucose 500+. Na 130. Cl 96. Electrolyte derangement likely 2/2 chronic beer consumption. Patient denies any cough, congestion, abd pain, diarrhea, nausea, vomiting, or urinary symptoms. denies headache, no abnormal vaginal discharge Patient was admitted with fever of unclear etiology, uncontrolled DM and electrolyte derangements Her blood and urine cultures grew ESBL E.Coli 1. Gram negative Sepsis secondary to ESBL E.Coli Blood cultures positive for ESBL E. Coli possible source is UTI since urine cultures also came positive with the same organism Pt came in febrile, tachycardic, with elevated WBC d/c cefepime and Clindamycin Started Meropenem 03/27 - ID rec 14-21 days IV Meropenem ( Apr 09) Repeat blood culture x 2 negative ID on consult following pt Echo showed no vegetations 2. UTI secondary to ESBL E.Coli urine cultures positive. patient denies any urinary symptoms On Meropenem IV 3. DM type II with Hyperglycemia uncontrolled restarted DM meds, Metformin and Actos added Glucotrol 10 mg BID will start Januvia 100 mg Po daily Continue Accuchecks, insulin coverage , diabetic diet Hgb A1c : 11.6 4. Hypertension started lisinopril 10 mg po daily 5. Dyslipidemia TG 288 started Tricor 6. Pseudohyponatremia due to elevated glucose 7. Azotemia=resolved given IVF hydration 8. Generalized Body Aches, Chest Discomfort-improved EKG : normal Trop x3 negative 9 Mild anemia Most likely dilutional 10.DVT Proph Lovenox
[2017-04-01] MEDS: Insulin Lispro (humaLOG) 100 Units/ml Inj SC SCH ×5 (00:25→21:40)
[2017-04-01] MEDS: Meropenem 1 GM in Sodium Chloride 0.9% 100 ML IVPB SCH ×3 (00:26→17:34)
--- NOTE | 2017-04-01 07:42 | CP.PCM.PN ---
Subjective - Date & Time of Evaluation Date of Evaluation: 04/01/17 Time of Evaluation: 11:30 - Subjective Subjective: Patient seen and examined bedside. Feeling well. Hemodynamically stable, afebrile. No acute issues overnight. Objective - Vital Signs/Intake and Output Vital Signs (last 24 hours): Temp Pulse Resp BP Pulse Ox 97.6 F 78 20 108/67 98 04/01/17 00:34 04/01/17 00:34 04/01/17 00:34 04/01/17 00:34 04/01/17 00:34 - Medications Medications: Current Medications Acetaminophen (Tylenol 325mg Tab) 650 mg PO Q6 PRN PRN Reason: Fever >100.4 F Last Admin: 03/26/17 16:25 Dose: 650 mg Enoxaparin Sodium (Lovenox) 40 mg SC DAILY [facility] PRN Reason: Protocol Last Admin: 03/31/17 09:27 Dose: 40 mg Fenofibrate (Tricor) 48 mg PO DAILY [facility] Last Admin: 03/31/17 09:27 Dose: 48 mg Glipizide (Glucotrol) 10 mg PO BIDAC [facility] Last Admin: 03/31/17 16:06 Dose: 10 mg Meropenem 1 gm/ Sodium (Chloride) 100 mls @ 100 mls/hr IVPB Q8 [facility] Last Admin: 04/01/17 00:26 Dose: 100 mls/hr Ibuprofen (Motrin Tab) 400 mg PO Q6 PRN PRN Reason: Fever >100.4 F Last Admin: 03/27/17 16:34 Dose: 400 mg Insulin Human Lispro (Humalog) 0 units SC ACHS [facility] PRN Reason: Protocol Last Admin: 04/01/17 00:25 Dose: Not Given Lisinopril (Zestril) 10 mg PO DAILY [facility] Last Admin: 03/31/17 09:29 Dose: Not Given Metformin HCl (Glucophage) 1,000 mg PO BIDWM [facility] Last Admin: 03/31/17 16:10 Dose: 1,000 mg Ondansetron HCl (Zofran Inj) 4 mg IVP Q6 PRN PRN Reason: Nausea/Vomiting Last Admin: 03/25/17 10:02 Dose: 4 mg Pioglitazone HCl (Actos) 30 mg PO DAILY [facility] Last Admin: 03/31/17 09:27 Dose: 30 mg Sitagliptin Phosphate (Januvia) 100 mg PO DAILY [facility] - Labs Labs: 03/29/17 06:30 03/29/17 06:30 PT 10.4 Seconds (9.8-13.1) 03/25/17 00:39 INR 0.9 (0.9-1.2) 03/25/17 00:39 APTT 31.0 Seconds (25.6-37.1) 03/25/17 00:39 - Constitutional Appears: Well, Non-toxic, No Acute Distress - Head Exam Head Exam: ATRAUMATIC, NORMAL INSPECTION, NORMOCEPHALIC - Eye Exam Eye Exam: EOMI, Normal appearance, PERRL Pupil Exam: NORMAL ACCOMODATION - ENT Exam ENT Exam: Mucous Membranes Moist, Normal Exam - Neck Exam Neck Exam: Full ROM, Normal Inspection - Respiratory Exam Respiratory Exam: Clear to Ausculation Bilateral, NORMAL BREATHING PATTERN. absent: Rales, Rhonchi, Wheezes - Cardiovascular Exam Cardiovascular Exam: REGULAR RHYTHM, RRR, +S1. absent: JVD - GI/Abdominal Exam GI & Abdominal Exam: Soft, Normal Bowel Sounds. absent: Distended, Guarding, Rebound - Rectal Exam Rectal Exam: Deferred - Extremities Exam Extremities Exam: Full ROM, Normal Capillary Refill, Normal Inspection. absent : Calf Tenderness, Pedal Edema - Back Exam Back Exam: NORMAL INSPECTION - Neurological Exam Neurological Exam: Alert, Awake, CN II-XII Intact, Normal Gait, Oriented x3 - Psychiatric Exam Psychiatric exam: Normal Affect, Normal Mood - Skin Skin Exam: Dry, Intact, Normal Color, Warm Assessment and Plan - Assessment and Plan (Free Text) Assessment: 56 year old female PMH DM, presented to the ER for a one day history of subjective fever, malaise, and bodyaches. These symptoms were moderate severity , were constant, and were not ameliorated by anything and were not associated with any other symptoms. Over the weekend, patient heavily drank, and states she drinks beer. She also admitted to "eating everything under the sun" and not taking any of her medications. In the ER pt was febrile on arrival 102.8, tachycardia 111, BP 150/71. Glucose 500+. Na 130. Cl 96. Electrolyte derangement likely 2/2 chronic beer consumption. Patient denies any cough, congestion, abd pain, diarrhea, nausea, vomiting, or urinary symptoms. denies headache, no abnormal vaginal discharge Patient was admitted with fever of unclear etiology, uncontrolled DM and electrolyte derangements Her blood and urine cultures grew ESBL E.Coli 1. Gram negative Sepsis secondary to ESBL E.Coli Blood cultures positive for ESBL E. Coli possible source is UTI since urine cultures also came positive with the same organism Pt came in febrile, tachycardic, with elevated WBC d/c cefepime and Clindamycin Started Meropenem 03/27 - ID rec 14-21 days IV Meropenem ( Apr 09) Repeat blood culture x 2 negative Will repeat again blood cx x 2 today and urine cx ID on consult following pt Echo showed no vegetations 2. UTI secondary to ESBL E.Coli urine cultures positive. patient denies any urinary symptoms On Meropenem IV will repeat urine cx 3. DM type II with Hyperglycemia uncontrolled restarted DM meds, Metformin and Actos added Glucotrol 10 mg BID started Januvia 100 mg Po daily Continue Accuchecks, insulin coverage , diabetic diet Hgb A1c : 11.6 4. Hypertension started lisinopril 10 mg po daily 5. Dyslipidemia TG 288 started Tricor 6. Pseudohyponatremia due to elevated glucose 7. Azotemia=resolved given IVF hydration 8. Generalized Body Aches, Chest Discomfort-improved EKG : normal Trop x3 negative 9 Mild anemia Most likely dilutional 10.DVT Proph Lovenox
[2017-04-01] MEDS: Enoxaparin 40 mg Syringe SC SCH (10:14)
[2017-04-02] MEDS: Meropenem 1 GM in Sodium Chloride 0.9% 100 ML IVPB SCH ×3 (00:22→16:55)
[2017-04-02 06:59] LABS: MEAN CELL VOLUME 89.8 fl (81.0-99.0); MEAN CORPUSCULAR HEMOGLOBIN 29.3 pg (27.0-31.0); MEAN CORPUSCULAR HGB CONC 32.7 g/dL (33.0-37.0); RED CELL DISTRIBUTION WIDTH 13.2 % (11.5-14.5); WHITE BLOOD COUNT 7.9 K/uL (4.8-10.8)
[2017-04-02 07:06] LABS: BLOOD UREA NITROGEN 28 mg/dl (7-17); CALCIUM 9.2 mg/dL (8.4-10.2); CARBON DIOXIDE 27 mmol/L (22-30); CHLORIDE 103 mmol/L (98-107); GFR AFRICAN-AMERICAN > 60; GLUCOSE,RANDOM 179 mg/dL (65-105); POTASSIUM 4.3 MMOL/L (3.6-5.0); SODIUM 138 mmol/l (132-148)
[2017-04-02] MEDS: Insulin Lispro (humaLOG) 100 Units/ml Inj SC SCH ×4 (10:03→22:36)
[2017-04-02] MEDS: Enoxaparin 40 mg Syringe SC SCH (10:06)
--- NOTE | 2017-04-02 13:39 | CP.PCM.PN ---
Subjective - Date & Time of Evaluation Date of Evaluation: 04/02/17 Time of Evaluation: 13:39 - Subjective Subjective: ID Note- Pt. seen and examined today. pt. states she feels much better. denies any nausea, denies any dysurea, denies any fever or chills. Objective - Vital Signs/Intake and Output Vital Signs (last 24 hours): Temp Pulse Resp BP Pulse Ox 99 F 63 20 64/62 L 97 04/02/17 08:51 04/02/17 10:03 04/02/17 08:51 04/02/17 10:03 04/02/17 08:51 - Medications Medications: Current Medications Acetaminophen (Tylenol 325mg Tab) 650 mg PO Q6 PRN PRN Reason: Fever >100.4 F Last Admin: 03/26/17 16:25 Dose: 650 mg Enoxaparin Sodium (Lovenox) 40 mg SC DAILY [facility] PRN Reason: Protocol Last Admin: 04/02/17 10:06 Dose: 40 mg Fenofibrate (Tricor) 48 mg PO DAILY [facility] Last Admin: 04/02/17 10:02 Dose: 48 mg Glipizide (Glucotrol) 10 mg PO BIDAC [facility] Last Admin: 04/02/17 10:05 Dose: 10 mg Meropenem 1 gm/ Sodium (Chloride) 100 mls @ 100 mls/hr IVPB Q8 [facility] Last Admin: 04/02/17 10:15 Dose: 100 mls/hr Ibuprofen (Motrin Tab) 400 mg PO Q6 PRN PRN Reason: Fever >100.4 F Last Admin: 03/27/17 16:34 Dose: 400 mg Insulin Human Lispro (Humalog) 0 units SC ACHS [facility] PRN Reason: Protocol Last Admin: 04/02/17 13:07 Dose: 1 u Lisinopril (Zestril) 10 mg PO DAILY [facility] Last Admin: 04/02/17 10:03 Dose: 10 mg Metformin HCl (Glucophage) 1,000 mg PO BIDWM [facility] Last Admin: 04/02/17 10:02 Dose: 1,000 mg Ondansetron HCl (Zofran Inj) 4 mg IVP Q6 PRN PRN Reason: Nausea/Vomiting Last Admin: 03/25/17 10:02 Dose: 4 mg Pioglitazone HCl (Actos) 30 mg PO DAILY [facility] Last Admin: 04/02/17 10:07 Dose: 30 mg Sitagliptin Phosphate (Januvia) 100 mg PO DAILY [facility] Last Admin: 04/02/17 10:16 Dose: 100 mg - Labs Labs: - Additional Findings Additional findings: - Constitutional Additional comments: NAD, alert - Head Exam Head Exam: ATRAUMATIC - Eye Exam Eye Exam: EOMI Pupil Exam: PERRL - ENT Exam ENT Exam: Normal Oropharynx - Neck Exam Neck exam: Positive for: Full Rom Additional comments: supple - Respiratory Exam Respiratory Exam: Clear to Auscultation Bilateral, NORMAL BREATHING PATTERN - Cardiovascular Exam Cardiovascular Exam: RRR, +S1, +S2 - GI/Abdominal Exam GI & Abdominal Exam: Normal Bowel Sounds, Soft Additional comments: NT, ND No CVA tenderness B/L - Neurological Exam Additional comments: AAO x 3 Laboratory Results - last 72 hr 03/30/17 03/30/17 03/31/17 16:56 21:10 06:19 WBC RBC Hgb Hct MCV MCH MCHC RDW Plt Count Sodium Potassium Chloride Carbon Dioxide Anion Gap BUN Creatinine Est GFR ( Amer) Est GFR (Non-Af Amer) POC Glucose (mg/dL) 285 H 187 H 208 H Random Glucose Calcium 03/31/17 03/31/17 03/31/17 10:35 15:36 21:11 WBC RBC Hgb Hct MCV MCH MCHC RDW Plt Count Sodium Potassium Chloride Carbon Dioxide Anion Gap BUN Creatinine Est GFR ( Amer) Est GFR (Non-Af Amer) POC Glucose (mg/dL) 313 H 122 H 162 H Random Glucose Calcium 04/01/17 04/01/17 04/01/17 06:37 11:33 15:37 WBC RBC Hgb Hct MCV MCH MCHC RDW Plt Count Sodium Potassium Chloride Carbon Dioxide Anion Gap BUN Creatinine Est GFR ( Amer) Est GFR (Non-Af Amer) POC Glucose (mg/dL) 186 H 304 H 81 Random Glucose Calcium 04/01/17 04/02/17 04/02/17 21:07 06:00 06:00 WBC 7.9 RBC 3.56 L Hgb 10.4 L Hct 32.0 L MCV 89.8 MCH 29.3 MCHC 32.7 L RDW 13.2 Plt Count 413 H D Sodium 138 Potassium 4.3 Chloride 103 Carbon Dioxide 27 Anion Gap 13 BUN 28 H Creatinine 1.1 Est GFR ( Amer) > 60 Est GFR (Non-Af Amer) 51 POC Glucose (mg/dL) 207 H Random Glucose 179 H Calcium 9.2 04/02/17 04/02/17 06:33 11:39 WBC RBC Hgb Hct MCV MCH MCHC RDW Plt Count Sodium Potassium Chloride Carbon Dioxide Anion Gap BUN Creatinine Est GFR ( Amer) Est GFR (Non-Af Amer) POC Glucose (mg/dL) 201 H 154 H Random Glucose Calcium Microbiology 04/01/17 18:12 Urine,Catheterized Urine Culture - Final No Growth (<1,000 CFU/ML) 04/01/17 08:30 Blood Blood Culture - Preliminary NO GROWTH AFTER 24 HOURS 04/01/17 08:30 Blood Blood Culture - Preliminary NO GROWTH AFTER 24 HOURS 03/26/17 15:28 Blood Blood Culture - Final NO GROWTH AFTER 5 DAYS 03/26/17 15:28 Blood Gram Stain - Final 03/26/17 15:00 Blood Blood Culture - Final NO GROWTH AFTER 5 DAYS 03/26/17 15:00 Blood Gram Stain - Final TEST NOT PERFORMED 03/25/17 00:50 Blood Blood Culture - Final NO GROWTH AFTER 5 DAYS 03/25/17 00:50 Blood Gram Stain - Final TEST NOT PERFORMED 03/25/17 00:15 Urine,Clean Catch Urine Culture - Final Escherichia Coli 03/25/17 00:30 Blood Blood Culture - Final Escherichia Coli 03/25/17 00:30 Blood Gram Stain - Final Assessment and Plan (1) Hyperglycemia due to type 2 diabetes mellitus Status: Acute (2) Bacteremia due to Escherichia coli Status: Acute (3) E. coli UTI (urinary tract infection) Status: Acute - Assessment and Plan (Free Text) Assessment: A/P- 56 year old female with uncontrolled diabetes admitted with bodyaches, malaise and fever and found to have e.coli UTI and bacteremia. afebrile today normal wbc count urine cx- e.coli blood cx-1 out of 2 E.Coli was later reported as ESBL CXR- negative as per report echo- no clear vegetations as per communication specialist's report. repeat blood cx- neg x 5 repeat urine cx- negative plan- advise to continue with IV meropenem for ESBL e.coli bacteremia. day #7 today. will need total of 14-21 days of IV abx for this e.coli bactermia. once pt. is clear from medical standpoint for discharge would advise picc line to complete rest of her abx treatment as outpatient. will need 2 repeat blood cx after completion of her abx treatment as well
--- NOTE | 2017-04-02 16:58 | CP.PCM.PN ---
Subjective - Date & Time of Evaluation Date of Evaluation: 04/02/17 Time of Evaluation: 11:00 - Subjective Subjective: Patient seen and examined bedside. Feeling better. No acute issues overnight BP on th elower side afebrile Denies any CP, SOB, dizziness Objective - Vital Signs/Intake and Output Vital Signs (last 24 hours): Temp Pulse Resp BP Pulse Ox 98.4 F 73 18 102/76 99 04/02/17 16:29 04/02/17 16:29 04/02/17 16:29 04/02/17 16:29 04/02/17 16:29 - Medications Medications: Current Medications Acetaminophen (Tylenol 325mg Tab) 650 mg PO Q6 PRN PRN Reason: Fever >100.4 F Last Admin: 03/26/17 16:25 Dose: 650 mg Enoxaparin Sodium (Lovenox) 40 mg SC DAILY [facility] PRN Reason: Protocol Last Admin: 04/02/17 10:06 Dose: 40 mg Fenofibrate (Tricor) 48 mg PO DAILY [facility] Last Admin: 04/02/17 10:02 Dose: 48 mg Glipizide (Glucotrol) 10 mg PO BIDAC [facility] Last Admin: 04/02/17 10:05 Dose: 10 mg Meropenem 1 gm/ Sodium (Chloride) 100 mls @ 100 mls/hr IVPB Q8 [facility] Last Admin: 04/02/17 10:15 Dose: 100 mls/hr Ibuprofen (Motrin Tab) 400 mg PO Q6 PRN PRN Reason: Fever >100.4 F Last Admin: 03/27/17 16:34 Dose: 400 mg Insulin Human Lispro (Humalog) 0 units SC ACHS [facility] PRN Reason: Protocol Last Admin: 04/02/17 13:07 Dose: 1 u Lisinopril (Zestril) 2.5 mg PO DAILY [facility] Metformin HCl (Glucophage) 1,000 mg PO BIDWM [facility] Last Admin: 04/02/17 10:02 Dose: 1,000 mg Ondansetron HCl (Zofran Inj) 4 mg IVP Q6 PRN PRN Reason: Nausea/Vomiting Last Admin: 03/25/17 10:02 Dose: 4 mg Pioglitazone HCl (Actos) 30 mg PO DAILY [facility] Last Admin: 04/02/17 10:07 Dose: 30 mg Sitagliptin Phosphate (Januvia) 100 mg PO DAILY [facility] Last Admin: 04/02/17 10:16 Dose: 100 mg - Labs Labs: 04/02/17 06:00 04/02/17 06:00 PT 10.4 Seconds (9.8-13.1) 03/25/17 00:39 INR 0.9 (0.9-1.2) 03/25/17 00:39 APTT 31.0 Seconds (25.6-37.1) 03/25/17 00:39 - Constitutional Appears: Well, Non-toxic, No Acute Distress - Head Exam Head Exam: ATRAUMATIC, NORMAL INSPECTION, NORMOCEPHALIC - Eye Exam Eye Exam: EOMI, Normal appearance, PERRL Pupil Exam: NORMAL ACCOMODATION - ENT Exam ENT Exam: Mucous Membranes Moist, Normal Exam - Neck Exam Neck Exam: Full ROM, Normal Inspection - Respiratory Exam Respiratory Exam: Clear to Ausculation Bilateral, NORMAL BREATHING PATTERN. absent: Rales, Rhonchi, Wheezes - Cardiovascular Exam Cardiovascular Exam: REGULAR RHYTHM, RRR, +S1, +S2. absent: JVD - GI/Abdominal Exam GI & Abdominal Exam: Soft, Normal Bowel Sounds. absent: Distended, Guarding, Tenderness, Rebound - Rectal Exam Rectal Exam: Deferred - Extremities Exam Extremities Exam: Full ROM, Normal Capillary Refill, Normal Inspection. absent : Calf Tenderness, Pedal Edema - Back Exam Back Exam: NORMAL INSPECTION - Neurological Exam Neurological Exam: Alert, Awake, CN II-XII Intact, Oriented x3 - Psychiatric Exam Psychiatric exam: Normal Affect, Normal Mood - Skin Skin Exam: Dry, Intact, Normal Color, Warm Assessment and Plan - Assessment and Plan (Free Text) Assessment: 56 year old female PMH DM, presented to the ER for a one day history of subjective fever, malaise, and bodyaches. These symptoms were moderate severity , were constant, and were not ameliorated by anything and were not associated with any other symptoms. Over the weekend, patient heavily drank, and states she drinks beer. She also admitted to "eating everything under the sun" and not taking any of her medications. In the ER pt was febrile on arrival 102.8, tachycardia 111, BP 150/71. Glucose 500+. Na 130. Cl 96. Electrolyte derangement likely 2/2 chronic beer consumption. Patient denies any cough, congestion, abd pain, diarrhea, nausea, vomiting, or urinary symptoms. denies headache, no abnormal vaginal discharge Patient was admitted with fever of unclear etiology, uncontrolled DM and electrolyte derangements Her blood and urine cultures grew ESBL E.Coli 1. Gram negative Sepsis secondary to ESBL E.Coli Blood cultures positive for ESBL E. Coli possible source is UTI since urine cultures also came positive with the same organism Pt came in febrile, tachycardic, with elevated WBC Started Meropenem 03/27 - ID rec 14-21 days IV Meropenem ( Apr 09) Repeat blood culture x 2 negative Follow up repeat blood cx and urine cx sent 04/01 on consult following pt Echo showed no vegetations 2. UTI secondary to ESBL E.Coli urine cultures positive. patient denies any urinary symptoms On Meropenem IV follow up repeat urine cx 3. DM type II with Hyperglycemia uncontrolled restarted DM meds, Metformin and Actos added Glucotrol 10 mg BID started Januvia 100 mg Po daily Continue Accuchecks, insulin coverage , diabetic diet Hgb A1c : 11.6 4. Hypertension BP on the lower side 90/53 Decrease Lisinopril from 10 tp 2.5 mg po daily 5. Dyslipidemia TG 288 started Tricor 6. Pseudohyponatremia due to elevated glucose 7. Azotemia=resolved given IVF hydration 8. Generalized Body Aches, Chest Discomfort-improved EKG : normal Trop x3 negative 9 Mild anemia Most likely dilutional 10.DVT Proph Lovenox
[2017-04-03] MEDS: Meropenem 1 GM in Sodium Chloride 0.9% 100 ML IVPB SCH ×3 (00:22→16:30)
[2017-04-03] MEDS: Enoxaparin 40 mg Syringe SC SCH (09:24)
[2017-04-03] MEDS: Insulin Lispro (humaLOG) 100 Units/ml Inj SC SCH ×4 (09:24→22:09)
--- NOTE | 2017-04-03 10:12 | CP.PCM.PN ---
Subjective - Date & Time of Evaluation Date of Evaluation: 04/03/17 Time of Evaluation: 09:45 - Subjective Subjective: No fever no flank pain no dysuria no CP no abd pain Pt anxious to go home - explained need to continue IV abx given Bacteremia Objective - Vital Signs/Intake and Output Vital Signs (last 24 hours): Temp Pulse Resp BP Pulse Ox 98.6 F 73 20 102/62 97 04/03/17 08:03 04/03/17 09:25 04/03/17 08:03 04/03/17 09:25 04/03/17 08:03 - Medications Medications: Current Medications Acetaminophen (Tylenol 325mg Tab) 650 mg PO Q6 PRN PRN Reason: Fever >100.4 F Last Admin: 03/26/17 16:25 Dose: 650 mg Enoxaparin Sodium (Lovenox) 40 mg SC DAILY [facility] PRN Reason: Protocol Last Admin: 04/03/17 09:24 Dose: 40 mg Fenofibrate (Tricor) 48 mg PO DAILY [facility] Last Admin: 04/03/17 09:24 Dose: 48 mg Glipizide (Glucotrol) 10 mg PO BIDAC [facility] Last Admin: 04/03/17 09:24 Dose: 10 mg Meropenem 1 gm/ Sodium (Chloride) 100 mls @ 100 mls/hr IVPB Q8 [facility] Last Admin: 04/03/17 09:23 Dose: 100 mls/hr Ibuprofen (Motrin Tab) 400 mg PO Q6 PRN PRN Reason: Fever >100.4 F Last Admin: 03/27/17 16:34 Dose: 400 mg Insulin Human Lispro (Humalog) 0 units SC ACHS [facility] PRN Reason: Protocol Last Admin: 04/03/17 09:24 Dose: 2 u Lisinopril (Zestril) 2.5 mg PO DAILY [facility] Last Admin: 04/03/17 09:25 Dose: 2.5 mg Metformin HCl (Glucophage) 1,000 mg PO BIDWM [facility] Last Admin: 04/03/17 09:24 Dose: 1,000 mg Ondansetron HCl (Zofran Inj) 4 mg IVP Q6 PRN PRN Reason: Nausea/Vomiting Last Admin: 03/25/17 10:02 Dose: 4 mg Pioglitazone HCl (Actos) 30 mg PO DAILY [facility] Last Admin: 04/03/17 09:24 Dose: 30 mg Sitagliptin Phosphate (Januvia) 100 mg PO DAILY [facility] Last Admin: 04/03/17 09:25 Dose: 100 mg - Labs Labs: 04/02/17 06:00 04/02/17 06:00 PT 10.4 Seconds (9.8-13.1) 03/25/17 00:39 INR 0.9 (0.9-1.2) 03/25/17 00:39 APTT 31.0 Seconds (25.6-37.1) 03/25/17 00:39 - Constitutional Appears: Non-toxic, No Acute Distress - Head Exam Head Exam: NORMAL INSPECTION, NORMOCEPHALIC - Eye Exam Eye Exam: EOMI, Normal appearance, PERRL Pupil Exam: NORMAL ACCOMODATION - ENT Exam ENT Exam: Mucous Membranes Moist, Normal External Ear Exam - Neck Exam Neck Exam: Full ROM. absent: Meningismus - Respiratory Exam Respiratory Exam: NORMAL BREATHING PATTERN. absent: Respiratory Distress - Cardiovascular Exam Cardiovascular Exam: REGULAR RHYTHM, +S1, +S2 - GI/Abdominal Exam GI & Abdominal Exam: Soft, Normal Bowel Sounds. absent: Tenderness - Extremities Exam Extremities Exam: Full ROM, Normal Capillary Refill. absent: Calf Tenderness - Back Exam Back Exam: Full ROM. absent: CVA tenderness (L), CVA tenderness (R) - Neurological Exam Neurological Exam: Alert, Awake, CN II-XII Intact, Oriented x3 Neuro motor strength exam: Left Upper Extremity: 5, Right Upper Extremity: 5, Left Lower Extremity: 5, Right Lower Extremity: 5 - Psychiatric Exam Psychiatric exam: Normal Affect, Normal Mood - Skin Skin Exam: Dry, Normal Color, Warm Assessment and Plan - Assessment and Plan (Free Text) Assessment: 56 year old female PMH DM, presented to the ER for a one day history of subjective fever, malaise, and bodyaches. These symptoms were moderate severity , were constant, and were not ameliorated by anything and were not associated with any other symptoms. In the ER pt was febrile on arrival 102.8, tachycardic 111, BP 150/71. Glucose 500+. Na 130. Cl 96. Patient denies any cough, congestion, abd pain, diarrhea, nausea, vomiting, or urinary symptoms. denies headache, no abnormal vaginal discharge Patient was admitted with fever of unclear etiology, uncontrolled DM and electrolyte derangements Her blood and urine cultures grew ESBL E.Coli 1. Gram negative Sepsis secondary to ESBL E.Coli Blood cultures positive for ESBL E. Coli possible source is UTI since urine cultures also came positive with the same organism Pt came in febrile, tachycardic, with elevated WBC Started Meropenem 03/27 - ID rec 14-21 days IV Meropenem ( Apr 09) Repeat blood culture x 2 and rpt Urine c/s: negative ID on consult following pt Echo showed no vegetations 2. UTI secondary to ESBL E.Coli urine cultures positive. patient denies any urinary symptoms On Meropenem IV repeat urine cx : neg 3. DM type II with Hyperglycemia uncontrolled restarted DM meds, Metformin and Actos added Glucotrol 10 mg BID started Januvia 100 mg Po daily Continue Accuchecks, insulin coverage , diabetic diet Hgb A1c : 11.6 4. Hypertension BP on the lower side 90/53 Decrease Lisinopril from 10 tp 2.5 mg po daily 5. Dyslipidemia TG 288 started Tricor 6. Pseudohyponatremia due to elevated glucose 7. Azotemia=resolved given IVF hydration 8. Generalized Body Aches, Chest Discomfort-improved EKG : normal Trop x3 negative 9 Mild anemia Most likely dilutional 10.DVT Proph Lovenox
[2017-04-04] MEDS: Meropenem 1 GM in Sodium Chloride 0.9% 100 ML IVPB SCH ×3 (00:07→16:29)
[2017-04-04] MEDS: Insulin Lispro (humaLOG) 100 Units/ml Inj SC SCH ×4 (06:35→21:42)
[2017-04-04] MEDS: Enoxaparin 40 mg Syringe SC SCH (09:23)
--- NOTE | 2017-04-04 11:45 | CP.PCM.PN ---
Subjective - Date & Time of Evaluation Date of Evaluation: 04/04/17 Time of Evaluation: 11:30 - Subjective Subjective: No fever feels fine and wants to go home reapeat Blood c/s x 5 negative Rpt Urine c/s: negative so far denies abd pain no flank pain Objective - Vital Signs/Intake and Output Vital Signs (last 24 hours): Temp Pulse Resp BP Pulse Ox 98.2 F 71 20 101/65 99 04/04/17 09:25 04/04/17 09:25 04/04/17 09:25 04/04/17 09:25 04/04/17 09:25 - Medications Medications: Current Medications Acetaminophen (Tylenol 325mg Tab) 650 mg PO Q6 PRN PRN Reason: Fever >100.4 F Last Admin: 03/26/17 16:25 Dose: 650 mg Enoxaparin Sodium (Lovenox) 40 mg SC DAILY [facility] PRN Reason: Protocol Last Admin: 04/04/17 09:23 Dose: 40 mg Fenofibrate (Tricor) 48 mg PO DAILY [facility] Last Admin: 04/04/17 09:24 Dose: 48 mg Glipizide (Glucotrol) 10 mg PO BIDAC [facility] Last Admin: 04/04/17 09:23 Dose: 10 mg Meropenem 1 gm/ Sodium (Chloride) 100 mls @ 100 mls/hr IVPB Q8 [facility] Last Admin: 04/04/17 09:23 Dose: 100 mls/hr Ibuprofen (Motrin Tab) 400 mg PO Q6 PRN PRN Reason: Fever >100.4 F Last Admin: 03/27/17 16:34 Dose: 400 mg Insulin Human Lispro (Humalog) 0 units SC ACHS [facility] PRN Reason: Protocol Last Admin: 04/04/17 06:35 Dose: Not Given Lisinopril (Zestril) 2.5 mg PO DAILY [facility] Last Admin: 04/04/17 09:24 Dose: 2.5 mg Metformin HCl (Glucophage) 1,000 mg PO BIDWM [facility] Last Admin: 04/04/17 09:24 Dose: 1,000 mg Ondansetron HCl (Zofran Inj) 4 mg IVP Q6 PRN PRN Reason: Nausea/Vomiting Last Admin: 03/25/17 10:02 Dose: 4 mg Pioglitazone HCl (Actos) 30 mg PO DAILY [facility] Last Admin: 04/04/17 09:23 Dose: 30 mg Sitagliptin Phosphate (Januvia) 100 mg PO DAILY [facility] Last Admin: 04/04/17 09:24 Dose: 100 mg - Labs Labs: 04/02/17 06:00 04/02/17 06:00 PT 10.4 Seconds (9.8-13.1) 03/25/17 00:39 INR 0.9 (0.9-1.2) 03/25/17 00:39 APTT 31.0 Seconds (25.6-37.1) 03/25/17 00:39 - Constitutional Appears: Non-toxic, No Acute Distress - Head Exam Head Exam: NORMAL INSPECTION, NORMOCEPHALIC - Eye Exam Eye Exam: EOMI, Normal appearance, PERRL Pupil Exam: NORMAL ACCOMODATION - ENT Exam ENT Exam: Mucous Membranes Moist, Normal External Ear Exam - Neck Exam Neck Exam: Full ROM. absent: Meningismus - Respiratory Exam Respiratory Exam: NORMAL BREATHING PATTERN. absent: Respiratory Distress - Cardiovascular Exam Cardiovascular Exam: REGULAR RHYTHM, +S1, +S2 - GI/Abdominal Exam GI & Abdominal Exam: Soft, Normal Bowel Sounds. absent: Tenderness - Extremities Exam Extremities Exam: Full ROM, Normal Capillary Refill. absent: Calf Tenderness - Back Exam Back Exam: Full ROM. absent: CVA tenderness (L), CVA tenderness (R) - Neurological Exam Neurological Exam: Alert, Awake, CN II-XII Intact, Oriented x3 Neuro motor strength exam: Left Upper Extremity: 5, Right Upper Extremity: 5, Left Lower Extremity: 5, Right Lower Extremity: 5 - Psychiatric Exam Psychiatric exam: Normal Affect, Normal Mood - Skin Skin Exam: Dry, Normal Color, Warm Assessment and Plan - Assessment and Plan (Free Text) Assessment: 56 year old female PMH DM, presented to the ER for a one day history of subjective fever, malaise, and bodyaches. These symptoms were moderate severity , were constant, and were not ameliorated by anything and were not associated with any other symptoms. In the ER pt was febrile on arrival 102.8, tachycardic 111, BP 150/71. Glucose 500+. Na 130. Cl 96. Patient denies any cough, congestion, abd pain, diarrhea, nausea, vomiting, or urinary symptoms. denies headache, no abnormal vaginal discharge Patient was admitted with fever of unclear etiology, uncontrolled DM and electrolyte derangements Her blood and urine cultures grew ESBL E.Coli. Rpt Blood c/s and Urine c/s : negative 1. Gram negative Sepsis secondary to ESBL E.Coli Blood cultures positive for ESBL E. Coli possible source is UTI since urine cultures also came positive with the same organism Pt came in febrile, tachycardic, with elevated WBC Started Meropenem 03/27 - ID rec 14-21 days IV Meropenem ( Apr 09) Repeat blood culture x 5 and rpt Urine c/s: negative ID on consult following pt Echo showed no vegetations 2. UTI secondary to ESBL E.Coli urine cultures positive. patient denies any urinary symptoms On Meropenem IV repeat urine cx : neg 3. DM type II with Hyperglycemia Uncontrolled now better controlled restarted DM meds, Metformin and Actos added Glucotrol 10 mg BID started Januvia 100 mg Po daily Continue Accuchecks, insulin coverage , diabetic diet Hgb A1c : 11.6 4. Hypertension BP on the lower side Decrease Lisinopril from 10 tp 2.5 mg po daily 5. Dyslipidemia TG 288 started Tricor 6. Pseudohyponatremia due to elevated glucose 7. Azotemia=resolved given IVF hydration 8. Generalized Body Aches, Chest Discomfort-improved EKG : normal Trop x3 negative 9 Mild anemia Most likely dilutional 10.DVT Proph Lovenox
[2017-04-04 16:56] VITALS: RESP 18
[2017-04-05] MEDS: Meropenem 1 GM in Sodium Chloride 0.9% 100 ML IVPB SCH ×2 (00:56→08:57)
--- NOTE | 2017-04-05 07:31 | CP.PCM.DIS ---
Provider - Provider Date of Admission: 03/26/17 08:04 Attending physician: Donya Calderon DO Primary care physician: none Consults: ID consult Time Spent in preparation of Discharge (in minutes): 20 Hospital Course - Lab Results Lab Results: Micro Results 04/01/17 08:30 Blood Blood Culture - Preliminary NO GROWTH AFTER 3 DAYS 04/01/17 08:30 Blood Blood Culture - Preliminary NO GROWTH AFTER 3 DAYS 04/01/17 18:12 Urine,Catheterized Urine Culture - Final No Growth (<1,000 CFU/ML) 03/26/17 15:28 Blood Blood Culture - Final NO GROWTH AFTER 5 DAYS 03/26/17 15:28 Blood Gram Stain - Final 03/26/17 15:00 Blood Blood Culture - Final NO GROWTH AFTER 5 DAYS 03/26/17 15:00 Blood Gram Stain - Final TEST NOT PERFORMED Most Recent Lab Values WBC 7.9 K/uL (4.8-10.8) 04/02/17 06:00 RBC 3.56 Mil/uL (3.80-5.20) L 04/02/17 06:00 Hgb 10.4 g/dL (12.0-16.0) L 04/02/17 06:00 Hct 32.0 % (34.0-47.0) L 04/02/17 06:00 MCV 89.8 fl (81.0-99.0) 04/02/17 06:00 MCH 29.3 pg (27.0-31.0) 04/02/17 06:00 MCHC 32.7 g/dL (33.0-37.0) L 04/02/17 06:00 RDW 13.2 % (11.5-14.5) 04/02/17 06:00 Plt Count 413 K/uL (130-400) H D 04/02/17 06:00 MPV 8.1 fl (7.2-11.7) 03/26/17 06:30 Neut % (Auto) 89.8 % (50.0-75.0) H 03/26/17 06:30 Lymph % (Auto) 6.8 % (20.0-40.0) L 03/26/17 06:30 Gallia % (Auto) 2.9 % (0.0-10.0) 03/26/17 06:30 Eos % (Auto) 0.2 % (0.0-4.0) 03/26/17 06:30 Baso % (Auto) 0.3 % (0.0-2.0) 03/26/17 06:30 Neut # 8.0 K/uL (1.8-7.0) H 03/26/17 06:30 Lymph # 0.6 K/uL (1.0-4.3) L 03/26/17 06:30 Gallia # 0.3 K/uL (0.0-0.8) 03/26/17 06:30 Eos # 0.0 K/uL (0.0-0.7) 03/26/17 06:30 Baso # 0.0 K/uL (0.0-0.2) 03/26/17 06:30 Neutrophils % (Manual) 97 % (42-75) H 03/25/17 10:15 Band Neutrophils % 4 % (0-2) H 03/25/17 00:39 Lymphocytes % (Manual) 2 % (20-50) L 03/25/17 10:15 Monocytes % (Manual) 1 % (0-10) 03/25/17 10:15 Eosinophils % (Manual) 2 % (0-7) 03/25/17 00:39 Platelet Estimate Normal (NORMAL) 03/25/17 10:15 Large Platelets Present 03/25/17 00:39 Hypochromasia (manual) Slight 03/25/17 10:15 Anisocytosis (manual) Slight 03/25/17 00:39 Stomatocytes Slight 03/25/17 00:39 PT 10.4 Seconds (9.8-13.1) 03/25/17 00:39 INR 0.9 (0.9-1.2) 03/25/17 00:39 APTT 31.0 Seconds (25.6-37.1) 03/25/17 00:39 pCO2 27 mm/Hg (35-45) L 03/25/17 00:37 pO2 175 mm/Hg (30-55) H 03/25/17 00:37 HCO3 25.8 mmol/L (21-28) 03/25/17 00:37 ABG pH 7.53 (7.35-7.45) H 03/25/17 00:37 ABG Total CO2 23.4 mmol/L (22-28) 03/25/17 00:37 ABG O2 Saturation 101.1 % (95-98) H 03/25/17 00:37 ABG Base Excess 1.1 mmol/L (-2.0-3.0) 03/25/17 00:37 Neil Test Yes 03/25/17 00:37 ABG Potassium 5.1 mmol/L (3.6-5.2) 03/25/17 00:37 VBG pH 7.53 (7.32-7.43) H 03/25/17 00:37 VBG pCO2 27 mmHg (40-60) L 03/25/17 00:37 VBG HCO3 25.8 mmol/L 03/25/17 00:37 VBG Total CO2 23.4 mmol/L (22-28) 03/25/17 00:37 VBG O2 Sat (Calc) 101.1 % (40-65) H 03/25/17 00:37 VBG Base Excess 1.1 mmol/L (0.0-2.0) 03/25/17 00:37 VBG Potassium 5.1 mmol/L (3.6-5.2) 03/25/17 00:37 A-a O2 Difference -59.0 mm/Hg 03/25/17 00:37 Sodium 124.0 mmol/L (132-148) L 03/25/17 00:37 Chloride 93.0 mmol/L (98-107) L 03/25/17 00:37 Glucose 533 mg/dL (65-105) H* 03/25/17 00:37 Lactate 1.9 mmol/L (0.7-2.1) 03/25/17 00:37 FiO2 21.0 % 03/25/17 00:37 Crit Value Called To federico Plata md 03/25/17 00:37 Crit Value Called By [id number] 03/25/17 00:37 Crit Value Read Back Y 03/25/17 00:37 Blood Gas Notified Time 40 03/25/17 00:37 Sodium 138 mmol/l (132-148) 04/02/17 06:00 Potassium 4.3 MMOL/L (3.6-5.0) 04/02/17 06:00 Chloride 103 mmol/L (98-107) 04/02/17 06:00 Carbon Dioxide 27 mmol/L (22-30) 04/02/17 06:00 Anion Gap 13 (10-20) 04/02/17 06:00 BUN 28 mg/dl (7-17) H 04/02/17 06:00 Creatinine 1.1 mg/dL (0.7-1.2) 04/02/17 06:00 Est GFR ( Amer) > 60 04/02/17 06:00 Est GFR (Non-Af Amer) 51 04/02/17 06:00 POC Glucose (mg/dL) 85 mg/dL (65-110) 04/05/17 06:14 Random Glucose 179 mg/dL (65-105) H 04/02/17 06:00 Hemoglobin A1c 11.6 % (4.2-6.5) H 03/28/17 05:30 Calcium 9.2 mg/dL (8.4-10.2) 04/02/17 06:00 Phosphorus 2.7 mg/dl (2.5-4.5) 03/25/17 00:39 Magnesium 1.7 MG/DL (1.6-2.3) 03/25/17 00:39 Total Bilirubin 0.6 mg/dl (0.2-1.3) 03/25/17 00:39 AST 33 U/L (14-36) 03/25/17 00:39 ALT 38 U/L (9-52) 03/25/17 00:39 Alkaline Phosphatase 160 U/L (38-126) H 03/25/17 00:39 Troponin I < 0.0120 ng/mL (0.00-0.120) 03/26/17 23:25 Total Protein 7.5 G/DL (6.3-8.2) 03/25/17 00:39 Albumin 4.1 g/dL (3.5-5.0) 03/25/17 00:39 Globulin 3.4 gm/dL (2.2-3.9) 03/25/17 00:39 Albumin/Globulin Ratio 1.2 (1.0-2.1) 03/25/17 00:39 Triglycerides 288 mg/DL (0-149) H 03/28/17 05:30 Cholesterol 155 mg/dL (0-199) 03/28/17 05:30 LDL Cholesterol Direct 95 mg/dL (0-129) 03/28/17 05:30 HDL Cholesterol 19 MG/DL (30-70) L 03/28/17 05:30 TSH 3rd Generation 1.33 mIU/ML (0.46-4.68) 03/28/17 05:30 Arterial Blood Potassium 5.1 mmol/L (3.6-5.2) 03/25/17 00:37 Venous Blood Potassium 5.1 mmol/L (3.6-5.2) 03/25/17 00:37 Urine Color Straw (YELLOW) 03/25/17 00:15 Urine Clarity Clear (Clear) 03/25/17 00:15 Urine pH 6.0 (5.0-8.0) 03/25/17 00:15 Ur Specific [place]ell 1.023 (1.003-1.030) 03/25/17 00:15 Urine Protein 30 mg/dL (NEGATIVE) 03/25/17 00:15 Urine Glucose (UA) >=500 mg/dL (Normal) 03/25/17 00:15 Urine Ketones Trace mg/dL (NEGATIVE) 03/25/17 00:15 Urine Blood Negative (NEGATIVE) 03/25/17 00:15 Urine Nitrate Negative (NEGATIVE) 03/25/17 00:15 Urine Bilirubin Negative (NEGATIVE) 03/25/17 00:15 Urine Urobilinogen 0.2-1.0 mg/dL (0.2-1.0) 03/25/17 00:15 Ur Leukocyte Esterase Neg [place]/uL (Negative) 03/25/17 00:15 Urine RBC (Auto) 4 /hpf (0-3) H 03/25/17 00:15 Urine Microscopic WBC 7 /hpf (0-5) H 03/25/17 00:15 Urine Bacteria Rare (<OCC) 03/25/17 00:15 HIV-1 Ab Rapid Screen Non reactive (NON REAC) 03/25/17 19:37 Influenza Typ A,B (EIA) Negative for flu a/b (NEGATIVE) 03/25/17 02:49 - Hospital Course Hospital Course: 56 year old female PMH DM, presented to the ER for a one day history of subjective fever, malaise, and bodyaches. These symptoms were moderate severity , were constant, and were not ameliorated by anything and were not associated with any other symptoms. In the ER pt was febrile on arrival 102.8, tachycardic 111, BP 150/71. Glucose 500+. Na 130. Cl 96. Patient denies any cough, congestion, abd pain, diarrhea, nausea, vomiting, or urinary symptoms. denies headache, no abnormal vaginal discharge Patient was admitted with fever of unclear etiology, uncontrolled DM and electrolyte derangements.She was found to be septic . During this admission her blood and urine cultures grew ESBL E.Coli. She received 10 days of IV Meropenem. Patient remained hemodynamically stable, afebrile.Repeat Blood cultures x 5 were negative and repeat urine culture was negative. Echo showed no vegetations. Also her BS were found to be not well controlled with Hgb A1c 11.6 so she was started on Metformin 100 mg po BId , [id number] mg po daily and Glucotrol 10 mg po BID and actos 30 mg po daily. A6t presenrt doing well Will discharge her home with follow up [facility] 1. Gram negative Sepsis secondary to ESBL E.Coli Blood cultures positive for ESBL E. Coli possible source is UTI since urine cultures also came positive with the same organism Pt came in febrile, tachycardic, with elevated WBC Echo showed no vegetations Started Meropenem 03/27 and received until 04/05 -- 10 days ID rec 14-21 days IV Meropenem but patient has had 5 blood cultures so far with no growth and urine culture with no growth .Will d/c Meropenem. patient to follow up with [facility] 2. UTI secondary to ESBL E.Coli urine cultures positive. received Meropenem IV x 10 day s repeat urine cx : neg 3. DM type II with Hyperglycemia Uncontrolled now better controlled restarted DM meds, Metformin and Actos added Glucotrol 10 mg BID started Januvia 100 mg Po daily diabetic diet Hgb A1c : 11.6 4. Hypertension BP on the lower side Lisinopril 2.5 mg po daily for renal protection 5. Dyslipidemia TG 288 started Tricor 6. Pseudohyponatremia due to elevated glucose resolved 7. Azotemia=resolved given IVF hydration 8. Generalized Body Aches, Chest Discomfort-improved EKG : normal Trop x3 negative 9 Mild anemia Most likely dilutional 10.DVT Proph received Lovenox Discharge Exam - Head Exam Head Exam: ATRAUMATIC, NORMAL INSPECTION, NORMOCEPHALIC - Eye Exam Eye Exam: EOMI, Normal appearance, PERRL Pupil Exam: NORMAL ACCOMODATION - ENT Exam ENT Exam: Mucous Membranes Moist, Normal Exam - Neck Exam Neck exam: Full Rom, Normal Inspection - Respiratory Exam Respiratory Exam: Clear to PA & Lateral, NORMAL BREATHING PATTERN. absent: Rales, Rhonchi, Wheezes, Respiratory Distress - Cardiovascular Exam Cardiovascular Exam: REGULAR RHYTHM, RRR, +S1, +S2. absent: JVD - GI/Abdominal Exam GI & Abdominal Exam: Normal Bowel Sounds, Soft. absent: Distended, Guarding, Rebound, Tenderness - Rectal Exam Rectal Exam: Deferred - Extremities Exam Extremities exam: normal capillary refill, normal inspection, pedal pulses present - Back Exam Back exam: NORMAL INSPECTION - Neurological Exam Neurological exam: Alert, CN II-XII Intact, Oriented x3, Reflexes Normal - Psychiatric Exam Psychiatric exam: Normal Affect, Normal Mood - Skin Skin Exam: Dry, Intact, Normal Color, Warm Discharge Plan - Discharge Medications Prescriptions: Fenofibrate [Tricor] 48 mg PO DAILY #30 tab GlipiZIDE [Glucotrol] 10 mg PO BIDAC #60 tab Lisinopril [Zestril] 2.5 mg PO DAILY #30 tab MetFORMIN [glucoPHAGE] 1,000 mg PO BIDWM #60 tab Pioglitazone [Actos] 30 mg PO DAILY #30 tab SITagliptin [Januvia] 100 mg PO DAILY #30 tab - Follow Up Plan Condition: GOOD Disposition: HOME/ ROUTINE Patient education suggested?: Yes Instructions: Urinary Tract Infection in Women (DC), Diabetes Mellitus Type 2 in Adults (GEN), Extended Spectrum Beta Lactamase (GEN), Diabetic Hyperglycemia (GEN) Referrals: [facility] [place] [Outside]
[2017-04-05 07:46] VITALS: TEMP 98.9; O2SAT 100
[2017-04-05] MEDS: Insulin Lispro (humaLOG) 100 Units/ml Inj SC SCH (08:49)
[2017-04-05 08:55] VITALS: BP 108/60; PULSE 78
[2017-04-05] MEDS: Enoxaparin 40 mg Syringe SC SCH (08:56)
== END 2017-04-05 12:35 | disposition home or self-care (01) | DRG 901 ==
LOC: H.ER 23:49 → H.ERHOLD 03-25 02:16 → H.MEDSURG1 03-25 05:38 → OBSVTOIN 03-26 08:04 → H.MEDSURG1 03-27 00:37
PROVIDERS: ADMIT Student in an Organized Health Care Education/Training Program; ATTEND Student in an Organized Health Care Education/Training Program
DX: A41.51 Sepsis due to Escherichia coli [E. coli] (principal); E11.65 Type 2 diabetes mellitus with hyperglycemia; I10 Essential (primary) hypertension; E87.1 Hypo-osmolality and hyponatremia; N39.0 Urinary tract infection, site not specified; D64.9 Anemia, unspecified; E78.5 Hyperlipidemia, unspecified; F10.10 Alcohol abuse, uncomplicated; F17.200 Nicotine dependence, unspecified, uncomplicated; Z16.12 Extended spectrum beta lactamase (ESBL) resistance; Z79.84 Long term (current) use of oral hypoglycemic drugs; R00.0 Tachycardia, unspecified; R07.89 Other chest pain